=== PATIENT | female | born 1995 | race African-American/Black ===

== ENCOUNTER 2016-10-06 05:36 | Emergency (ER) | payer OTHER ==
[~2016-10-06] VITALS: Ht 180.3 cm; Wt 125.0 kg
[~2016-10-06 05:36] MED LIST: AMOX500C PO; BACT2OIN TOP; CLIN1CAP6 PO; DICL50TA3 PO; GLIP5 PO; GLUCTAB PO; HYDR-2768 PO; PRED20 PO
[2016-10-06 05:40] VITALS: BP 135/72; PULSE 81; RESP 16; TEMP 98.3; O2SAT 96
[2016-10-06] MEDS ORDERED: HYDR12.57 PO (05:54)
[2016-10-06] MEDS ORDERED: METF500T PO (05:54)
--- NOTE | 2016-10-06 06:47 | PD ---
HPI Chief Complaint: Skin Problem Time Seen by Provider: 06:37 Travel History International Travel<30 days: No Contact w/Intl Traveler<30days: No Traveled to known affect area: No History of Present Illness HPI This patient was examined in the presence of a female nurse. 21-year-old female presents for evaluation of irritation of the genital skin. She reports that 2 weeks ago she wore her sisters tightly fitting underwear and since then she has had some irritation in the right labial folds. It is a tender area of skin which is worse with palpation. She has not had any vaginal discharge, dysuria. Patient also notes that she was at work today and she says that one of her coworkers was diagnosed with scabies. The patient has no rash but she is slightly itchy. She has no other complaints. PFSH Past Medical History Cancer: No Cardiovascular Problems: Yes (HTN) Developmental Delay: No Diabetes: Yes Diminished Hearing: No Genitourinary: No Hypertension: Yes Reproductive: No Respiratory: No Immunizations Current: Yes Migraines: Yes ?: Not LMP: 09/09/16 Social History Alcohol Use: No Tobacco Use: No Substance Use: No Allergies-Medications (Allergen,Severity, Reaction): Coded Allergies: Tylenol (Verified Allergy, Mild, THROAT ITCHES/DAVIES, 10/06/16) Reported Meds & Prescriptions Reported Meds & Active Scripts Active Amoxicillin 500 Mg Cap 1,000 Mg PO BID Reported Hydrochlorothiazide 12.5 Mg Cap 12.5 Mg PO DAILY Metformin (Metformin HCl) 500 Mg Tab 250 Mg PO DAILY With meals Review of Systems Except as stated in HPI: all other systems reviewed are Neg Physical Exam Narrative GENERAL: Well-developed well-nourished female in no acute distress SKIN: Warm and dry. CARDIOVASCULAR: Regular rate and rhythm. No murmur appreciated. RESPIRATORY: No accessory muscle use. Clear to auscultation. Breath sounds equal bilaterally. GASTROINTESTINAL: Abdomen soft, non-tender, nondistended. Genital examination reveals a little bit of skin maceration in the right labial folds. Tender to palpation. There is no erythema or drainage. No vesicle, no canker, no pustule formation Data Data Last Documented VS Vital Signs Date Time Temp Pulse Resp B/P Pulse Ox O2 Delivery O2 Flow Rate FiO2 10/06/16 05:40 98.3 81 16 135/72 96 Room Air MDM Medical Decision Making Medical Screen Exam Complete: Yes Emergency Medical Condition: Yes Medical Record Reviewed: Yes Differential Diagnosis Skin maceration, cellulitis, abscess, cyst, folliculitis, irritant contact dermatitis Narrative Course The patient appears to have a little bit of skin maceration in the right labial fold likely secondary to friction. She is a somewhat obese female. Recommended keeping the area clean and dry. Recommended placing a little bit of [id number] antibiotic cream on the region until it heals. There is no evidence of infection. The patient exhibits no examination findings to suggest scabies and I don't recommend prophylactic treatment. She is stable for discharge. Diagnosis Primary Impression: Skin maceration Additional Instructions: Wash the area daily with soap and water and apply antibiotic cream. Keep the area clean and dry. Follow-up with primary care physician as needed. Med/Other Pt SpecificInfo: No Change to Meds Disposition: 01 DISCHARGE HOME Condition: Stable Bridger Espinosa Oct 06, 2016 06:47
== END 2016-10-06 07:18 | disposition home or self-care (01) ==
LOC: NEPB 05:36
DX: L29.3 Anogenital pruritus, unspecified (principal); I10 Essential (primary) hypertension; E11.9 Type 2 diabetes mellitus without complications
CPT/HCPCS: 99283

== ENCOUNTER 2016-12-02 09:19 | Emergency (ER) | payer OTHER ==
[~2016-12-02] VITALS: Ht 180.3 cm; Wt 123.0 kg
[~2016-12-02 09:19] MED LIST changes: -BACT2OIN TOP; -CLIN1CAP6 PO; -DICL50TA3 PO; -GLIP5 PO; -GLUCTAB PO; -HYDR-2768 PO; +HYDR12.57 PO; +METF500T PO; -PRED20 PO
[2016-12-02 09:20] VITALS: BP 162/86; PULSE 74; RESP 20; TEMP 97.8; O2SAT 97
[2016-12-02 10:43] LABS: AUTOMATED NEUTROPHIL # 5.5 TH/MM3 (1.8-7.7); BASOPHIL % 0.3 % (0.0-2.0); EOSINOPHIL # 0.1 TH/MM3 (0-0.4); EOSINOPHIL % 0.8 % (0.0-4.0); HEMATOCRIT 39.5 % (35.0-46.0); HEMO FLAGS DIFF FINAL; LYMPH % 29.1 % (9.0-44.0); LYMPHOCYTE # 2.5 TH/MM3 (1.0-4.8); MEAN CELL VOLUME 83.1 FL (80.0-100.0); MEAN CORPUSCULAR HEMOGLOBIN 28.6 PG (27.0-34.0); MEAN CORPUSCULAR HGB CONC 34.4 % (32.0-36.0); NEUT % 64.8 % (16.0-70.0); PLATELET COUNT 327 TH/MM3 (150-450); RED BLOOD COUNT 4.75 MIL/MM3 (4.00-5.30); RED CELL DISTRIBUTION WIDTH 13.1 % (11.6-17.2); WHITE BLOOD COUNT 8.5 TH/MM3 (4.0-11.0)
[2016-12-02 10:59] VITALS: O2SAT 99
[2016-12-02 11:03] LABS: ANION GAP 9 MEQ/L (5-15); AST (GOT) 7 U/L (15-37); BICARBONATE 25.8 MEQ/L (21.0-32.0); BLOOD UREA NITROGEN 12 MG/DL (7-18); CHLORIDE 102 MEQ/L (98-107); GLOMERULAR FILTRATION RATE 106 ML/MIN (>89); POTASSIUM 3.7 MEQ/L (3.5-5.1); SODIUM (NA) 137 MEQ/L (136-145)
[2016-12-02 11:06] LABS: ALKALINE PHOSPHATASE 69 U/L (45-117); ALT (GPT) 13 U/L (10-53); TOTAL BILIRUBIN ADULT 0.5 MG/DL (0.2-1.0)
--- NOTE | 2016-12-02 11:13 | PD ---
HPI Chief Complaint: Abdominal Pain Time Seen by Provider: 11:13 Travel History International Travel<30 days: No Contact w/Intl Traveler<30days: No Traveled to known affect area: No History of Present Illness HPI 21-year-old Afro-[place] female presents emergency Department with 2 day history of sudden onset nausea, vomiting, and abdominal pain. Patient also states she recently started her menstrual cycle which typically gives her abdominal cramps. Patient feels her illness is probably due to a pizza that she ate when she woke up with copious amounts of nausea and vomiting 2 nights ago. She continues to have nausea but has not vomited since last evening. She denies fever, chills, or chance of . Patient has not eaten in the last 24 hours. Patient denies urinary symptoms. She denies vaginal symptoms. She is allergic to Tylenol. PFSH Past Medical History Cancer: No Cardiovascular Problems: Yes (HTN) Developmental Delay: No Diabetes: Yes Patient Takes Glucophage: Yes Diminished Hearing: No Genitourinary: No Hypertension: Yes Reproductive: No Respiratory: No Immunizations Current: Yes Migraines: Yes Tetanus Vaccination: < 5 Years ?: Not LMP: 12/02/16 Past Surgical History Surgical History: No Previous Surgery Other Surgery: No Social History Alcohol Use: Yes (OCCASIONALLY WINE) Tobacco Use: No Substance Use: No Allergies-Medications (Allergen,Severity, Reaction): Coded Allergies: Tylenol (Verified Allergy, Mild, THROAT ITCHES/DAVIES, 12/02/16) Reported Meds & Prescriptions Reported Meds & Active Scripts Active Metformin (Metformin HCl) 500 Mg Tab 500 Mg PO TIDPC With meals Zofran (Ondansetron HCl) 4 Mg Tab 4 Mg PO Q6HR PRN Ibuprofen 600 Mg Tab 600 Mg PO Q6H PRN Keflex (Cephalexin) 500 Mg Cap 500 Mg PO Q8H Reported Hydrochlorothiazide 12.5 Mg Cap 12.5 Mg PO DAILY Metformin (Metformin HCl) 500 Mg Tab 250 Mg PO DAILY With meals Review of Systems Except as stated in HPI: all other systems reviewed are Neg General / Constitutional: No: Fever, Chills Eyes: No: Visual changes HENT: No: Headaches Cardiovascular: No: Chest Pain or Discomfort Respiratory: No: Shortness of Breath Gastrointestinal: Positive: Nausea, Vomiting, Abdominal Pain (crampy lower abdominal), Loss of Appetite, No: Diarrhea (yesterday.) Genitourinary: No: Urgency, Frequency, Dysuria, Nocturia Musculoskeletal: No: Pain Skin: No Rash Neurologic: No: Weakness Psychiatric: No: Depression Endocrine: No: Polydipsia Hematologic/Lymphatic: No: Easy Bruising Physical Exam Narrative GENERAL: Patient is sitting up in bed in no acute distress. SKIN: Warm and dry. Normal color. Normal turgor. HEAD: Atraumatic. Normocephalic. EYES: Pupils equal and round. No scleral icterus. No injection or drainage. ENT: No nasal bleeding or discharge. Mucous membranes pink and moist. Pharynx is normal. Airway is patent. NECK: Trachea midline. Neck is supple and nontender. CARDIOVASCULAR: Regular rate and rhythm. No murmurs gallops or rubs. RESPIRATORY: No accessory muscle use. Clear to auscultation. Breath sounds equal bilaterally. GASTROINTESTINAL: Abdomen soft, mild generalized lower abdominal discomfort more on the right than the left, Nondistended. Hepatic and splenic margins not palpable. MUSCULOSKELETAL: Extremities without clubbing, cyanosis, or edema. No obvious deformities. NEUROLOGICAL: Awake and alert. No obvious cranial nerve deficits. Motor grossly within normal limits. Five out of 5 muscle strength in the arms and legs. Normal speech. PSYCHIATRIC: Appropriate mood and affect; insight and judgment normal. Data Data Last Documented VS Vital Signs Date Time Temp Pulse Resp B/P Pulse Ox O2 Delivery O2 Flow Rate FiO2 12/02/16 10:59 99 Room Air 12/02/16 10:59 20 12/02/16 09:20 97.8 74 162/86 Orders Complete Blood Count With Diff (12/02/16 10:04) Comprehensive Metabolic Panel (12/02/16 10:04) Urinalysis - C+S If Indicated (12/02/16 10:04) Ed Urine Pregnancytest Poc (12/02/16 10:04) Iv Access Insert/Monitor (12/02/16 10:04) Oxygen Administration (12/02/16 10:04) Oximetry (12/02/16 10:04) Lipase (12/02/16 10:04) Ecg Monitoring (12/02/16 11:18) NPO (12/02/16 11:18) Ondansetron Inj (Zofran Inj) (12/02/16 11:30) Sodium Chlor 0.9% 1000 Ml Inj (Ns 1000 M (12/02/16 11:18) Famotidine Inj (Pepcid Inj) (12/02/16 11:30) Ketorolac Inj (Toradol Inj) (12/02/16 11:30) Urine Culture (12/02/16 10:16) Labs Laboratory Tests Test 12/02/16 10:16 White Blood Count 8.5 TH/MM3 Red Blood Count 4.75 MIL/MM3 Hemoglobin 13.6 GM/DL Hematocrit 39.5 % Mean Corpuscular Volume 83.1 FL Mean Corpuscular Hemoglobin 28.6 PG Mean Corpuscular Hemoglobin 34.4 % Concent Red Cell Distribution Width 13.1 % Platelet Count 327 TH/MM3 Mean Platelet Volume 7.1 FL Neutrophils (%) (Auto) 64.8 % Lymphocytes (%) (Auto) 29.1 % Monocytes (%) (Auto) 5.0 % Eosinophils (%) (Auto) 0.8 % Basophils (%) (Auto) 0.3 % Neutrophils # (Auto) 5.5 TH/MM3 Lymphocytes # (Auto) 2.5 TH/MM3 Monocytes # (Auto) 0.4 TH/MM3 Eosinophils # (Auto) 0.1 TH/MM3 Basophils # (Auto) 0.0 TH/MM3 CBC Comment DIFF FINAL Differential Comment Urine Color RED Urine Turbidity HAZY Urine pH 6.0 Urine Specific [place] 1.037 Urine Protein 100 mg/dL Urine Glucose (UA) 1000 mg/dL Urine Ketones NEG mg/dL Urine Occult Blood MOD Urine Nitrite NEG Urine Bilirubin NEG Urine Urobilinogen 2.0 MG/DL Urine Leukocyte Esterase NEG Urine RBC /hpf Urine WBC 10 /hpf Urine Squamous Epithelial 12 /hpf Cells Urine Bacteria FEW /hpf Microscopic Urinalysis Comment CULTURE INDICATED Sodium Level 137 MEQ/L Potassium Level 3.7 MEQ/L Chloride Level 102 MEQ/L Carbon Dioxide Level 25.8 MEQ/L Anion Gap 9 MEQ/L Blood Urea Nitrogen 12 MG/DL Creatinine 0.82 MG/DL Estimat Glomerular Filtration 106 ML/MIN Rate Random Glucose 278 MG/DL Calcium Level 8.6 MG/DL Total Bilirubin 0.5 MG/DL Aspartate Amino Transf 7 U/L (AST/SGOT) Alanine Aminotransferase 13 U/L (ALT/SGPT) Alkaline Phosphatase 69 U/L Total Protein 7.6 GM/DL Albumin 3.5 GM/DL Lipase 103 U/L [facility] Medical Decision Making Medical Screen Exam Complete: Yes Emergency Medical Condition: Yes Differential Diagnosis Nausea vomiting. Abdominal pain. Menstrual cramping. Food poisoning. Narrative Course Patient is medically stable at time of exam. CBC, CMP, and urinalysis are ordered prior to arrival in the medical pod. Urine is pending. IV access is obtained patient is given 20 mg Pepcid IV, 4 mg Zofran IV, and 30 mg Toradol IV. Patient is found to have a urinary tract infection. CBC and CMP are unremarkable except for an elevated sugar of 258. Patient will be discharged home on Keflex 500 mg 3 times a day 7 days. Patient is given a prescription for Zofran 4 mg every 6 hours when necessary # 12. Patient is given a refill of her metformin 500 mg 3 times a day #90. Patient is given ibuprofen 600 mg 4 times a day when necessary menstrual cramping #40. Patient is to follow with her primary care physician or return to emergency department as necessary. Diagnosis Primary Impression: Urinary tract infection Qualified Code: N30.01 - Acute cystitis with hematuria Additional Impressions: Nausea and vomiting Qualified Code: R11.2 - Non-intractable vomiting with nausea, unspecified vomiting type Type 2 diabetes mellitus Qualified Code: E11.9 - Type 2 diabetes mellitus without complication, without long-term current use of insulin Menstrual cramps Referrals: Primary Care Physician Patient Instructions: Acute Nausea and Vomiting (ED), Dysuria (ED), General Instructions Additional Instructions: Patient will be discharged home on Keflex 500 mg 3 times a day 7 days. Patient is given a prescription for Zofran 4 mg every 6 hours when necessary # 12. Patient is given a refill of her metformin 500 mg 3 times a day #90. Patient is given ibuprofen 600 mg 4 times a day when necessary menstrual cramping #40. Patient is to follow with her primary care physician or return to emergency department as necessary. Scripts Metformin 500 Mg [id number] Mg PO TIDPC #90 TAB Ref 0 With meals Prov:Donavon Saleh MD 12/02/16 Ondansetron (Zofran)4 Mg Tab4 Mg PO Q6HR PRN (NAUSEA OR VOMITING) #12 TAB Prov:Donavon Saleh MD 12/02/16 Ibuprofen 600 Mg [id number] Mg PO Q6H PRN (Pain/Inflammation) #40 TAB Prov:Donavon Saleh MD 12/02/16 Cephalexin (Keflex)500 Mg [id number] Mg PO Q8H #21 CAP Prov:Donavon Saleh MD 12/02/16 Disposition: 01 DISCHARGE HOME Condition: Stable Fredi Strauss Dec 02, 2016 11:13
[2016-12-02] MEDS ORDERED: SODIUM CHLOR 0.9% 1000 ML INJ 1,000 ML IV SCH (11:18)
[2016-12-02 11:25] VITALS: BP 143/76; PULSE 80; RESP 20; O2SAT 97
[2016-12-02 11:25] LABS: BACTERIA, URINE FEW /hpf; BLOOD, URINE MOD (NEG); COMMENT (UR) CULTURE INDICATED; CULTURE IF INDICATED CULTURE INDICATED; GLUCOSE,URINE 1000 mg/dL (NEG); KETONE, URINE NEG (NEG); NITRITE,URINE NEG (NEG); SQUAMOUS EPITHELIAL CELL URINE 12 /hpf (0-5)
[2016-12-02 11:26] LABS: URINE COLOR RED (YELLW/STRAW)
[2016-12-02] MEDS ORDERED: ONDANSETRON HCL 4 MG/2 ML VIAL IVP ONE (11:30)
[2016-12-02] MEDS ORDERED: FAMOTIDINE 20 MG/2 ML VIAL IV PUSH ONE (11:30)
[2016-12-02] MEDS ORDERED: KETOROLAC TROMETHAMINE 30 MG/ML (IVP) VIAL IVP ONE (11:30)
[2016-12-02] MEDS ORDERED: IBUP-232 PO (11:40)
[2016-12-02] MEDS ORDERED: ZOFR4TAB PO (11:40)
[2016-12-02] MEDS ORDERED: CEPH-460 PO (11:40)
[2016-12-02] MEDS ORDERED: METF500T PO (11:40)
== END 2016-12-02 12:31 | disposition home or self-care (01) ==
LOC: NEPE 09:19
DX: N30.01 Acute cystitis with hematuria (principal); B96.89 Other specified bacterial agents as the cause of diseases classified elsewhere; R11.2 Nausea with vomiting, unspecified; E11.9 Type 2 diabetes mellitus without complications; N94.6 Dysmenorrhea, unspecified; Z79.84 Long term (current) use of oral hypoglycemic drugs
CPT/HCPCS: 80053; 81001; 83690; 84703; 85025; 87086; 99284

== ENCOUNTER 2017-01-04 17:57 | Emergency (ER) | payer OTHER ==
[~2017-01-04 17:57] MED LIST changes: -AMOX500C PO; +CEPH-460 PO; +IBUP-232 PO; +ZOFR4TAB PO
[2017-01-04 17:59] VITALS: BP 158/79; PULSE 78; RESP 20; TEMP 98.8; O2SAT 99
[2017-01-04] MEDS ORDERED: IBUPROFEN 800 MG TAB PO ONE (18:45)
--- NOTE | 2017-01-04 18:48 | PD ---
HPI Chief Complaint: Injury Time Seen by Provider: 18:43 Travel History International Travel<30 days: No Contact w/Intl Traveler<30days: No Traveled to known affect area: No History of Present Illness HPI 21-year-old female presents to the emergency Department with complaint of left middle finger pain after slamming it in a door. She reports decreased range of motion at the PIP joint. Denies paresthesias, loss of sensation. Has not taken any medication or drainage from his to alleviate her symptoms. Allergies to Tylenol. No other modifying factors or associated signs and symptoms. PFSH Past Medical History Cancer: No Cardiovascular Problems: Yes (HTN) Developmental Delay: No Diabetes: Yes Patient Takes Glucophage: Yes Diminished Hearing: No Genitourinary: No Hypertension: Yes Reproductive: No Respiratory: No Immunizations Current: Yes Migraines: Yes Tetanus Vaccination: < 5 Years ?: Not Past Surgical History Other Surgery: No Social History Alcohol Use: Yes (OCCASIONALLY WINE) Tobacco Use: No Substance Use: No Allergies-Medications (Allergen,Severity, Reaction): Coded Allergies: Tylenol (Verified Allergy, Mild, THROAT ITCHES/DAVIES, 01/04/17) Reported Meds & Prescriptions Reported Meds & Active Scripts Active Metformin (Metformin HCl) 500 Mg Tab 500 Mg PO TIDPC With meals Reported Hydrochlorothiazide 12.5 Mg Cap 12.5 Mg PO DAILY Review of Systems Except as stated in HPI: all other systems reviewed are Neg Physical Exam Narrative GENERAL: Well-nourished, well-developed female patient, in no acute distress SKIN: Warm and dry. HEAD: Atraumatic. Normocephalic. EYES: Pupils equal and round. No scleral icterus. No injection or drainage. ENT: Mucosa pink and moist. Airway patent. NECK: Trachea midline. CARDIOVASCULAR: Regular rate. RESPIRATORY: No accessory muscle use. GASTROINTESTINAL: Obese. MUSCULOSKELETAL: Distal aspect of left third digit with mild edema; decreased range of motion at the PIP joint; no obvious deformity; sensory intact; less than 3 second cap refill; no open wound noted. No obvious deformities. No clubbing. No cyanosis. No edema. NEUROLOGICAL: Awake and alert. Oriented 3. No obvious cranial nerve deficits. Motor grossly within normal limits. Normal speech. PSYCHIATRIC: Appropriate mood and affect; insight and judgment normal. Data Data Last Documented VS Vital Signs Date Time Temp Pulse Resp B/P Pulse Ox O2 Delivery O2 Flow Rate FiO2 01/04/17 17:59 98.8 78 20 158/79 99 Room Air Orders Finger ([id number]) (01/04/17 ) Ibuprofen (Motrin) (01/04/17 18:45) Splint Or Brace Apply/Monitor (01/04/17 19:56) Finger Splint (01/04/17 ) MDM Medical Decision Making Medical Screen Exam Complete: Yes Emergency Medical Condition: Yes Medical Record Reviewed: Yes Differential Diagnosis Finger fracture, finger dislocation, finger contusion Narrative Course 21-year-old female with left third digit injury. Ibuprofen administered in the ER. Left third digit finger x-ray ordered. 1900: Bridger Espinosa PA-C will assume patient care at this time. Report given. See his note for final disposition. Kia ChapaP Jan 04, 2017 18:48
--- NOTE | 2017-01-04 19:56 | PD ---
Physical Exam Time Seen by Provider: 19:50 Data Data Last Documented VS Vital Signs Date Time Temp Pulse Resp B/P Pulse Ox O2 Delivery O2 Flow Rate FiO2 01/04/17 17:59 98.8 78 20 158/79 99 Room Air Orders Finger ([id number]) (01/04/17 ) Ibuprofen (Motrin) (01/04/17 18:45) Splint Or Brace Apply/Monitor (01/04/17 19:56) MDM Medical Record Reviewed: Yes Supervised Visit with JOSE MARTIN: No Narrative Course I assumed care of this patient pending x-ray imaging. Please see previous providers notes. She has pain to the distal aspect of left third finger after slamming a door in her finger. She has mild bruising to the dorsal aspect of the distal left third finger. No range of motion limitation or sensation change. X-ray imaging is negative for fracture. She appears to have a contusion. She is stable for discharge. She is requesting a finger splint were night because she typically sleeps in the bed with kids and she is concerned that one of them may hit her finger. She is stable for discharge. Diagnosis Primary Impression: Contusion of finger of left hand Qualified Code: S60.032A - Contusion of left middle finger without damage to nail, initial encounter Additional Instruction: Ice pack several times a day 15 minutes at a time over the next few days. Decrease use of left third finger. Ibuprofen for pain, take with meals. Can also take [id number] Tylenol. Med/Other Pt SpecificInfo: Orthopedic Instructions Disposition: 01 DISCHARGE HOME Condition: Stable Bridger Espinosa Jan 04, 2017 19:56
--- NOTE | 2017-01-04 20:05 | RADRPT ---
EXAM DATE/TIME: 01/04/2017 19:15 [facility] COMPARISON: No previous studies available for comparison. INDICATIONS : Left hand third digit pain. patient got finger caught in a door today. Pain and swelling near the PIP . MEDICAL HISTORY : None. SURGICAL HISTORY : None. ENCOUNTER: Initial ACUITY: 1 day PAIN SCORE: 10/10 LOCATION: Left hand, third digit. FINDINGS: Examination of the third digit of the left hand demonstrates no evidence of fracture or dislocation. No radiopaque foreign bodies are seen. The soft tissues are intact. CONCLUSION: Normal examination for a patient of this age. Selvin Castellanos MD on January 04, 2017 at 20:03 Board Certified Radiologist. This report was verified electronically.
== END 2017-01-04 20:25 | disposition home or self-care (01) ==
LOC: NEPK 17:57
DX: S60.032A Contusion of left middle finger without damage to nail, initial encounter (principal); W23.0XXA Caught, crushed, jammed, or pinched between moving objects, initial encounter
CPT/HCPCS: 29130; 73140

== ENCOUNTER 2017-02-10 22:51 | Emergency (ER) | payer OTHER ==
[~2017-02-10] VITALS: Ht 180.3 cm; Wt 120.0 kg
[~2017-02-10 22:51] MED LIST changes: -CEPH-460 PO; -IBUP-232 PO; -ZOFR4TAB PO
[2017-02-10 22:54] VITALS: BP 141/83; PULSE 90; RESP 16; TEMP 98.6; O2SAT 99
[2017-02-10] MEDS ORDERED: MOME17I EACH NARE (23:58)
[2017-02-10] MEDS ORDERED: DICL75TA PO (23:58)
[2017-02-10] MEDS ORDERED: FEXO1TAB97 PO (23:58)
[2017-02-10] MEDS ORDERED: CYCL1TAB29 PO (23:58)
[2017-02-11] MEDS ORDERED: CYCLOBENZAPRINE HCL 10 MG TAB PO ONE
[2017-02-11] MEDS ORDERED: IBUPROFEN 800 MG TAB PO ONE
[2017-02-11] MEDS ORDERED: diphenhydrAMINE HCL 50 MG CAP PO ONE
--- NOTE | 2017-02-11 00:05 | PD ---
HPI Chief Complaint: ENT Complaint Time Seen by Provider: 00:00 Travel History International Travel<30 days: No Contact w/Intl Traveler<30days: No Traveled to known affect area: No History of Present Illness HPI 21-year-old black female presents to emergency Department with complaints of right sided neck pain. She states that she has slept on the couch 4 days ago at the onset of her neck pain. She states the pain radiates up her neck into her head and down into her shoulder. Worse with movement. She also states that she had some cold symptoms this past week as well. This has consisted of runny nose, congestion, sinus pressure, sore throat and cough. She denies any fever chills. No significant ear pain, nausea, vomiting, diarrhea or abdominal pain. No urinary symptoms. PFSH Past Medical History Narrative Medical Diabetes, hypertension Cancer: No Cardiovascular Problems: Yes (HTN) Developmental Delay: No Diabetes: Yes Diminished Hearing: No Genitourinary: No Hypertension: Yes Reproductive: No Respiratory: No Immunizations Current: Yes Migraines: Yes Tetanus Vaccination: < 5 Years ?: Not LMP: Past Surgical History Surgical History: No Previous Surgery Other Surgery: No Social History Alcohol Use: Yes (OCCASIONALLY WINE) Tobacco Use: No Substance Use: No Allergies-Medications (Allergen,Severity, Reaction): Coded Allergies: Tylenol (Verified Allergy, Mild, THROAT ITCHES/DAVIES, 02/10/17) Reported Meds & Prescriptions Reported Meds & Active Scripts Active Diclofenac Sodium DR (Diclofenac Sodium) 75 Mg Tabdr 75 Mg PO BID Flexeril (Cyclobenzaprine HCl) 10 Mg Tab 10 Mg PO TID Bere-D 24 Hour Allergy (Fexofenadine-Pseudoephedrine ER 24 HR) 180-240 [place] 1 Tab PO DAILY Nasonex Nasal [place] (Mometasone Furoate) 50 Mcg/Act Naspr 2 [place] EACH NARE DAILY Metformin (Metformin HCl) 500 Mg Tab 500 Mg PO TIDPC With meals Reported Hydrochlorothiazide 12.5 Mg Cap 12.5 Mg PO DAILY Review of Systems Except as stated in HPI: all other systems reviewed are Neg Physical Exam Narrative GENERAL: Well-developed, well-nourished in no acute distress. Nontoxic appearing. HEAD: Normocephalic, atraumatic. No pain on percussion of the sinuses. EYES: Pupils equal round and reactive. Extraocular motions intact. No scleral icterus. No injection or drainage. ENT: TMs clear without erythema. The external auditory canals clear. Nose: clear discharge with edema turbinates . Posterior pharynx is mildly erythematous and moist. No tonsillar edema or exudate. Uvula midline. Airway patent. NECK: Trachea midline.Supple, tenderness to the right paracervical musculature. , moves head freely. No central bony tenderness. Mild trapezius spasm. CARDIOVASCULAR: Regular rate and rhythm without murmurs, gallops, or rubs. RESPIRATORY: Clear to auscultation. Breath sounds equal bilaterally. No wheezes , rales, or rhonchi. GASTROINTESTINAL: Abdomen soft, non-tender, nondistended. No hepato-splenomegaly , or palpable masses. No guarding. EXTREMITIES: No clubbing, cyanosis, or edema. No joint tenderness, effusion, or edema noted. BACK: Nontender without deformity or crepitance. No flank tenderness. Data Data Last Documented VS Vital Signs Date Time Temp Pulse Resp B/P Pulse Ox O2 Delivery O2 Flow Rate FiO2 02/10/17 22:54 98.6 90 16 141/83 99 Orders Diphenhydramine (Benadryl) (02/11/17 00:00) Cyclobenzaprine (Flexeril) (02/11/17 00:00) Ibuprofen (Motrin) (02/11/17 00:00) [facility] Medical Decision Making Medical Screen Exam Complete: Yes Emergency Medical Condition: Yes Medical Record Reviewed: Yes Differential Diagnosis MDM: High Differential diagnoses: URI, sinusitis, otitis media, sprain, strain, HNP, nerve or vascular injury Narrative Course Patient's given Motrin 800, Flexeril 10 mg, and Benadryl 50 mg by mouth. This is allergic rhinitis, neck pain with spasm Diagnosis Primary Impression: Allergic rhinitis Qualified Code: J30.9 - Allergic rhinitis, unspecified allergic rhinitis trigger, unspecified rhinitis seasonality Additional Impression: neck pain with spasm Patient Instructions: General Instructions Additional Instructions: Rest. Increase fluids. Medications as directed. Afrin nasal spray for the next 3-4 days only. Heating pad. Follow-up with your doctor in the next 3-5 days. Return to the ER for emergencies. Med/Other Pt SpecificInfo: Prescription(s) given Scripts Diclofenac Sodium DR 75 Mg Tabdr75 Mg PO BID #20 TAB Prov:Donavon Saleh MD 02/10/17 Cyclobenzaprine (Flexeril)10 Mg Tab10 Mg PO TID #21 TAB Prov:Donavon Saleh MD 02/10/17 Fexofenadine-Pseudoephedrine ER 24 HR (Bere-D 24 Hour Allergy)180-240 Taber1 Tab PO DAILY #15 TAB Prov:Donavon Saleh MD 02/10/17 Mometasone Nasal [place] (Nasonex Nasal [place])50 Mcg/Act Naspr2 [place] EACH NARE DAILY #1 BOTTLE Prov:Donavon Saleh MD 02/10/17 Disposition: 01 DISCHARGE HOME Condition: Eleuterio Douglas February 11, 2017 00:05
== END 2017-02-11 02:19 | disposition home or self-care (01) ==
LOC: NEPK 22:51
DX: J30.9 Allergic rhinitis, unspecified (principal); M54.2 Cervicalgia; I10 Essential (primary) hypertension; E11.9 Type 2 diabetes mellitus without complications; R25.2 Cramp and spasm
CPT/HCPCS: 99282; Q0163

== ENCOUNTER 2017-03-27 00:15 | Emergency (ER) | payer OTHER ==
[~2017-03-27] VITALS: Ht 180.3 cm; Wt 130.0 kg
[~2017-03-27 00:15] MED LIST changes: +CYCL1TAB29 PO; +DICL75TA PO; +FEXO1TAB97 PO; +MOME17I EACH NARE
[2017-03-27 00:18] VITALS: BP 175/107; PULSE 99; RESP 18; TEMP 99.3; O2SAT 99
[2017-03-27] MEDS ORDERED: METF500T PO (00:30)
[2017-03-27] MEDS ORDERED: SODIUM CHLOR 0.9% 1000 ML INJ 1,000 ML IV SCH (00:46)
[2017-03-27] MEDS ORDERED: SODIUM CHLORIDE 0.9% FLUSH 10 ML FLUSH IV FLUSH PRN (01:00)
[2017-03-27] MEDS ORDERED: diphenhydrAMINE HCL 50 MG/ML VIAL IVP ONE (01:00)
[2017-03-27] MEDS ORDERED: DEXAMETHASONE SOD PHOS 20 MG/5 ML VIAL IV PUSH ONE (01:00)
[2017-03-27] MEDS ORDERED: FAMOTIDINE 20 MG/2 ML VIAL IV PUSH ONE (01:00)
[2017-03-27 01:04] VITALS: RESP 18; O2SAT 100
[2017-03-27 01:05] VITALS: BP 161/98; PULSE 97; RESP 18; O2SAT 100
--- NOTE | 2017-03-27 01:11 | PD ---
HPI Chief Complaint: Allergic/Adverse Reaction Time Seen by Provider: 00:45 Travel History International Travel<30 days: No Contact w/Intl Traveler<30days: No Traveled to known affect area: No History of Present Illness HPI Patient is a 22 year old female who presents to ER with complaints of allergic reaction. Patient reports that around 10pm tonight, she tried drinking [place] [employer] Diomedes Wine for the first time. Reports that she put a little wine in her mouth and felt funny. Reports that she felt a tingling sensation to the back of her throat and reports that she broke out in a rash all over her body. Patient denies sensation of throat closing in on her. Reports that she has not had any allergies to Diomedes's in the past, no allergies to food. Patient reports that she only has an allergy to Tylenol. Patient with no other complaints at this time. PFSH Past Medical History Cancer: No Cardiovascular Problems: Yes (HTN) Developmental Delay: No Diabetes: Yes Patient Takes Glucophage: Yes Diminished Hearing: No Gastrointestinal Disorders: No Genitourinary: No Hypertension: Yes Implanted Vascular Access Dvce: No Reproductive: No Respiratory: No Immunizations Current: Yes Migraines: Yes ?: Not LMP: 03/09/17 Past Surgical History Surgical History: No Previous Surgery Other Surgery: No Social History Alcohol Use: Yes (OCCASIONALLY WINE) Tobacco Use: No Substance Use: No Allergies-Medications (Allergen,Severity, Reaction): Coded Allergies: Tylenol (Verified Allergy, Mild, THROAT ITCHES/DAVIES, 03/27/17) Reported Meds & Prescriptions Reported Meds & Active Scripts Active Epipen 2-Mynor Inj (Epinephrine) 0.3 Mg/0.3 Ml Pfpen 0.3 Mg IM ONCE PRN Prednisone 20 Mg Tab 20 Mg PO BID 5 Days Pepcid (Famotidine) 20 Mg Tab 20 Mg PO BID Bere-D 24 Hour Allergy (Fexofenadine-Pseudoephedrine ER 24 HR) 180-240 Eloy 1 Tab PO DAILY Reported Metformin (Metformin HCl) 500 Mg Tab 500 Mg PO DAILY With a meal Hydrochlorothiazide 12.5 Mg Cap 50 Mg PO DAILY Review of Systems General / Constitutional: No: Fever Eyes: No: Visual changes HENT: No: Headaches Cardiovascular: No: Chest Pain or Discomfort Respiratory: No: Shortness of Breath Gastrointestinal: No: Abdominal Pain Genitourinary: No: Dysuria Musculoskeletal: No: Pain Skin: Positive Rash, Positive Itching Neurologic: No: Weakness Psychiatric: No: Depression Endocrine: No: Polydipsia Hematologic/Lymphatic: No: Easy Bruising Physical Exam Narrative GENERAL: nad, nontoxic SKIN: Focused skin assessment warm/dry. HEAD: Atraumatic. Normocephalic. EYES: Pupils equal and round. No scleral icterus. No injection or drainage. ENT: No nasal bleeding or discharge. Mucous membranes pink and moist. Airway is open and patent, uvula midline, bilateral pharynx with no edema or erythema, patient is tolerating her own airway, no drooling on exam. NECK: Trachea midline. No JVD. CARDIOVASCULAR: Regular rate and rhythm. No murmur appreciated. RESPIRATORY: No accessory muscle use. Clear to auscultation. Breath sounds equal bilaterally. GASTROINTESTINAL: Abdomen soft, non-tender, nondistended. Hepatic and splenic margins not palpable. MUSCULOSKELETAL: No obvious deformities. No clubbing. No cyanosis. No edema. NEUROLOGICAL: Awake and alert. No obvious cranial nerve deficits. Motor grossly within normal limits. Normal speech. PSYCHIATRIC: Patient extremely anxious on exam. Data Data Last Documented VS Vital Signs Date Time Temp Pulse Resp B/P Pulse Ox O2 Delivery O2 Flow Rate FiO2 03/27/17 01:05 97 18 161/98 100 Room Air 03/27/17 00:18 99.3 Orders Ecg Monitoring (03/27/17 00:46) Iv Access Insert/Monitor (03/27/17 00:46) Oximetry (03/27/17 00:46) Diphenhydramine Inj (Benadryl Inj) (03/27/17 01:00) Famotidine Inj (Pepcid Inj) (03/27/17 01:00) Sodium Chlor 0.9% 1000 Ml Inj (Ns 1000 M (03/27/17 00:46) Sodium Chloride 0.9% Flush (Ns Flush) (03/27/17 01:00) Dexamethasone Inj (Decadron Inj) (03/27/17 01:00) MDM Medical Decision Making Medical Screen Exam Complete: Yes Emergency Medical Condition: Yes Interpretation(s) Vital Signs Date Time Temp Pulse Resp B/P Pulse Ox O2 Delivery O2 Flow Rate FiO2 03/27/17 01:05 97 18 161/98 100 Room Air 03/27/17 01:04 18 100 Room Air 03/27/17 00:18 99.3 99 18 175/107 99 Room Air Differential Diagnosis Allergic reaction Narrative Course Patient is a 22-year-old female who presents to emergency room with complaints of allergic reaction to raspberry. Patient reports that she drank some wine and felt a tingling sensation to her throat and was concerned for allergic reaction. Patient at this time has open airway. She is crying and upset. There is no obvious rash - will treat for allergic reaction with dexamethasone, pepcid, and benadryl. Will monitor patient on cardiac/vascular sonographer and continuous pulse oximeter patient re-evaluated, patient feeling much better at this time. airway is open and patent, uvula with no swelling, posterior pharynx open and patent, patient with decreased hives Diagnosis Primary Impression: Allergic reaction Qualified Code: T78.40XA - Allergic reaction, initial encounter Patient Instructions: General Instructions Additional Instructions: Please follow-up with your primary care doctor Please follow up with twx operator as soon as possible Please do not eat any raspberry products Return to ER as needed Please go to closest ER if you administer EPI pen to yourself Med/Other Pt SpecificInfo: Prescription(s) given Scripts Epinephrine Inj (Epipen 2-Mynor Inj)0.3 Mg/0.3 Ml Pfpen0.3 Mg IM ONCE PRN ( ALLERGIC REACTION) #1 PACK Ref 0 Prov:Hailey Aguilar DO 03/27/17 Prednisone 20 Mg Tab20 Mg PO BID 5 Days Ref 0 Prov:Hailey Aguilar DO 03/27/17 Famotidine (Pepcid)20 Mg Tab20 Mg PO BID #7 TAB Ref 0 Prov:Hailey Aguilar DO 03/27/17 Disposition: DISCHARGE HOME Condition: Stable Hailey Aguilar DO Mar 27, 2017 01:11
[2017-03-27] MEDS ORDERED: FAMO1TAB37 PO (02:12)
[2017-03-27] MEDS ORDERED: PRED20 PO (02:12)
[2017-03-27] MEDS ORDERED: EPIP0.3I IM (02:12)
== END 2017-03-27 03:13 | disposition home or self-care (01) ==
LOC: NEPC 00:15
DX: T78.40XA Allergy, unspecified, initial encounter (principal); I10 Essential (primary) hypertension; E11.9 Type 2 diabetes mellitus without complications; Z79.899 Other long term (current) drug therapy
CPT/HCPCS: 96374; 96375; 99284; J1100; J1200; J7030

== ENCOUNTER 2017-03-31 23:03 | Emergency (ER) | payer OTHER ==
[~2017-03-31] VITALS: Ht 180.3 cm; Wt 130.0 kg
[~2017-03-31 23:03] MED LIST changes: -CYCL1TAB29 PO; -DICL75TA PO; +EPIP0.3I IM; +FAMO1TAB37 PO; -MOME17I EACH NARE; +PRED20 PO
[2017-03-31 23:06] VITALS: BP 139/88; PULSE 76; RESP 16; TEMP 98.6; O2SAT 100
[2017-03-31] MEDS ORDERED: ONDANSETRON HCL 4 MG/2 ML VIAL IVP ONE (23:30)
[2017-03-31] MEDS ORDERED: SODIUM CHLORIDE 0.9% FLUSH 10 ML FLUSH IVF PRN (23:30)
[2017-03-31] MEDS ORDERED: SODIUM CHLOR 0.9% 1000 ML INJ 1,000 ML IV ONE (23:30)
--- NOTE | 2017-04-01 00:09 | PD ---
HPI . "Stomach pains" Chief Complaint: Abdominal Pain Time Seen by Provider: 23:18 Travel History International Travel<30 days: No Contact w/Intl Traveler<30days: No Traveled to known affect area: No History of Present Illness HPI 22 year old female with a history of diabetes and hypertension presents with abdominal pain. Onset was last night. Patient reports the pain is in the middle of her abdomen, no radiation. Pain comes and goes and episodes last about 30 minutes. She has had 5 episodes today. She describes the pain as a "squeezing and releasing" pain. Pain is alleviated with sitting. Aggravated by movement or bending over. She is also having associated nausea and vomiting. She had 2 episodes of emesis last night, none today. Also reports diarrhea. She has had about 7 episodes of diarrhea today of varying volumes. Patient reports she has had diarrhea before on metformin but the abdominal pain and vomiting are new. Reports having some blood when she wipes after bowel movements. She recently started metformin on Friday afternoon. Denies being sexually active and does not take an oral contraceptive. Last menstrual period was approximately March 18. Denies any fever, chills or dysuria. Reports decreased appetite. PFSH Past Medical History Cancer: No Cardiovascular Problems: Yes (HTN) Developmental Delay: No Diabetes: Yes Patient Takes Glucophage: Yes (AM) Diminished Hearing: No Gastrointestinal Disorders: No Genitourinary: No Hypertension: Yes Implanted Vascular Access Dvce: No Reproductive: No Respiratory: No Immunizations Current: Yes Migraines: Yes ?: Not LMP: 03/18/17 : 0 Past Surgical History Surgical History: No Previous Surgery Other Surgery: No Social History Alcohol Use: Yes (OCCASIONALLY WINE) Tobacco Use: No Substance Use: No Allergies-Medications (Allergen,Severity, Reaction): Coded Allergies: Tylenol (Verified Allergy, Mild, THROAT ITCHES/DAVIES, 03/31/17) Reported Meds & Prescriptions Reported Meds & Active Scripts Active Epipen 2-Mynor Inj (Epinephrine) 0.3 Mg/0.3 Ml Pfpen 0.3 Mg IM ONCE PRN Prednisone 20 Mg Tab 20 Mg PO BID 5 Days Pepcid (Famotidine) 20 Mg Tab 20 Mg PO BID Bere-D 24 Hour Allergy (Fexofenadine-Pseudoephedrine ER 24 HR) 180-240 Eloy 1 Tab PO DAILY Reported Metformin (Metformin HCl) 500 Mg Tab 500 Mg PO DAILY With a meal Hydrochlorothiazide 12.5 Mg Cap 50 Mg PO DAILY Review of Systems Except as stated in HPI: all other systems reviewed are Neg General / Constitutional: No: Fever, Chills Gastrointestinal: Positive: Nausea, Vomiting, Diarrhea, Abdominal Pain, Loss of Appetite Genitourinary: No: Dysuria Physical Exam Narrative GENERAL: awake and alert, in no acute distress. SKIN: Warm and dry. HEAD: Atraumatic. Normocephalic. EYES: Pupils equal and round. No scleral icterus. Extraocular eye movements intact. ENT: No nasal bleeding or discharge. Mucous membranes pink and moist. NECK: Trachea midline. CARDIOVASCULAR: Regular rate and rhythm. No murmurs, gallops, or rubs. RESPIRATORY: No accessory muscle use. Clear to auscultation. Breath sounds equal bilaterally. GASTROINTESTINAL: Abdomen soft, nondistended. Mildly tender of the mid-abdomen on palpation. No rebound or guarding. MUSCULOSKELETAL: No obvious deformities. No clubbing. No cyanosis. No edema. NEUROLOGICAL: Awake and alert. No obvious cranial nerve deficits. Motor grossly within normal limits. Normal speech. PSYCHIATRIC: Appropriate mood and affect; insight and judgment normal. Data Data Last Documented VS Vital Signs Date Time Temp Pulse Resp B/P Pulse Ox O2 Delivery O2 Flow Rate FiO2 03/31/17 23:06 98.6 76 16 139/88 100 Orders Urinalysis - C+S If Indicated (03/31/17 23:30) Iv Access Insert/Monitor (03/31/17 23:30) Ecg Monitoring (03/31/17 23:30) Oximetry (03/31/17 23:30) Ondansetron Inj (Zofran Inj) (03/31/17 23:30) Sodium Chlor 0.9% 1000 Ml Inj (Ns 1000 M (03/31/17 23:30) Sodium Chloride 0.9% Flush (Ns Flush) (03/31/17 23:30) Ed Urine Pregnancytest Poc (03/31/17 23:30) MDM Medical Decision Making Medical Screen Exam Complete: Yes Emergency Medical Condition: Yes Differential Diagnosis Differential diagnosis of abdominal pain includes but is not limited to gastritis, pancreatitis, hepatitis, gastroenteritis, gallbladder disease, constipation, urinary retention, UTI, peptic ulcer disease, diverticulitis or appendicitis Narrative Course Patient presents with one day of abdominal pain, nausea, and vomiting. Patient is well hydrated, physical exam was unremarkable and urine test was negative. Patient recently started metformin and has follow-up with primary care physician on . Patient is stable and will be discharged to home with a prescription for nausea. Diagnosis Primary Impression: Abdominal pain Qualified Code: R10.33 - Periumbilical abdominal pain Patient Instructions: Abdominal Pain (ED), General Instructions Med/Other Pt SpecificInfo: Prescription(s) given Scripts Ondansetron 8 Mg Tab8 Mg PO TID #12 TAB Ref 1 Prov:Oumou Betancourt MD 04/01/17 Disposition: DISCHARGE HOME Condition: Stable Oumou Betancourt MD Apr 01, 2017 00:09
[2017-04-01] MEDS ORDERED: ONDA1TAB17 PO (00:21)
== END 2017-04-01 00:59 | disposition home or self-care (01) ==
LOC: NEPD 23:03
DX: R10.33 Periumbilical pain (principal); R11.2 Nausea with vomiting, unspecified; R19.7 Diarrhea, unspecified; E11.9 Type 2 diabetes mellitus without complications; I10 Essential (primary) hypertension; Z79.84 Long term (current) use of oral hypoglycemic drugs; Z86.69 Personal history of other diseases of the nervous system and sense organs
CPT/HCPCS: 84703; 96361; 96374; 99284; J2405; J7030

== ENCOUNTER 2017-05-26 23:14 | Observation (INO) | payer OTHER ==
[~2017-05-26] VITALS: Ht 180.3 cm; Wt 145.0 kg
[~2017-05-26 23:14] MED LIST changes: +ONDA1TAB17 PO
[2017-05-26 23:16] VITALS: BP 129/82; PULSE 84; RESP 16; TEMP 98.6; O2SAT 100
--- NOTE | 2017-05-26 23:50 | RADRPT ---
EXAM DATE/TIME: 05/26/2017 23:50 [facility] COMPARISON: CHEST SINGLE AP, June 16, 2014, 1:52. INDICATIONS : Chest pain and shortness of breath. MEDICAL HISTORY : None. SURGICAL HISTORY : None. ENCOUNTER: Initial ACUITY: 2 days PAIN SCORE: 9/10 LOCATION: Bilateral chest FINDINGS: Single frontal view of the chest demonstrates a normal-sized cardiac silhouette. No effusion, consoli dation, or pneumothorax is visualized. The bones and soft tissues demonstrate no acute abnormality. CONCLUSION: No acute cardiopulmonary abnormality is identified. Aman Milton MD on May 26, 2017 at 23:48 Board Certified Radiologist. This report was verified electronically.
[2017-05-27 00:33] LABS: AUTOMATED NEUTROPHIL # 5.8 TH/MM3 (1.8-7.7); BASOPHIL # 0.1 TH/MM3 (0-0.2); BASOPHIL % 0.8 % (0.0-2.0); EOSINOPHIL # 0.1 TH/MM3 (0-0.4); HEMATOCRIT 36.8 % (35.0-46.0); HEMO FLAGS DIFF FINAL; LYMPH % 39.1 % (9.0-44.0); LYMPHOCYTE # 4.3 TH/MM3 (1.0-4.8); MEAN CELL VOLUME 82.3 FL (80.0-100.0); MEAN CORPUSCULAR HEMOGLOBIN 27.6 PG (27.0-34.0); MEAN CORPUSCULAR HGB CONC 33.6 % (32.0-36.0); MONO % 6.4 % (0.0-8.0); NEUT % 52.7 % (16.0-70.0); PLATELET COUNT 353 TH/MM3 (150-450); RED BLOOD COUNT 4.47 MIL/MM3 (4.00-5.30); RED CELL DISTRIBUTION WIDTH 13.3 % (11.6-17.2); WHITE BLOOD COUNT 10.9 TH/MM3 (4.0-11.0)
[2017-05-27 00:52] LABS: ANION GAP 10 MEQ/L (5-15); BICARBONATE 26.1 MEQ/L (21.0-32.0); BLOOD UREA NITROGEN 16 MG/DL (7-18); CHLORIDE 103 MEQ/L (98-107); GLOMERULAR FILTRATION RATE 112 ML/MIN (>89); POTASSIUM 3.7 MEQ/L (3.5-5.1); SODIUM (NA) 139 MEQ/L (136-145)
[2017-05-27 00:56] LABS: CREATINE KINASE 148 U/L (26-192)
[2017-05-27 01:08] LABS: CKMB LESS THAN 0.5 NG/ML (0.5-3.6)
[2017-05-27 01:26] VITALS: BP 129/73; PULSE 79; RESP 18; O2SAT 100
[2017-05-27] MEDS ORDERED: IBUPROFEN 600 MG TAB PO ONE (01:45)
--- NOTE | 2017-05-27 02:04 | PD ---
HPI Chief Complaint: Chest Pain Time Seen by Provider: 01:32 Travel History International Travel<30 days: No Contact w/Intl Traveler<30days: No Traveled to known affect area: No History of Present Illness HPI 22yo F with PMH of HTN and DM presents to the ED with c/o intermittent mid sternal chest pain for 3 days. States it is pressure like and associated with sob. Denies any fever, n/v, abdominal pain, focal weakness or numbness. States she had similar pain high school. Said she had fluid around her heart. Denies any history of PE/DVT, oral contraceptive pills, cig smoking, recent travel or surgery. Does not have any soil chemist. No family history of sudden cardiac . PFSH Past Medical History Cancer: No Cardiovascular Problems: Yes (HTN) Developmental Delay: No Diabetes: Yes Patient Takes Glucophage: No Diminished Hearing: No Gastrointestinal Disorders: No Genitourinary: No Hypertension: Yes Implanted Vascular Access Dvce: No Reproductive: No Respiratory: No Immunizations Current: Yes Migraines: Yes Tetanus Vaccination: Unknown ?: Not : 0 Past Surgical History Surgical History: No Previous Surgery Other Surgery: No Social History Alcohol Use: No Tobacco Use: No Substance Use: No Allergies-Medications (Allergen,Severity, Reaction): Coded Allergies: acetaminophen (Unverified Allergy, Mild, THROAT ITCHES/DAVIES, 05/26/17) Reported Meds & Prescriptions Reported Meds & Active Scripts Active Ondansetron (Ondansetron HCl) 8 Mg Tab 8 Mg PO TID Epipen 2-Mynor Inj (Epinephrine) 0.3 Mg/0.3 Ml Pfpen 0.3 Mg IM ONCE PRN Prednisone 20 Mg Tab 20 Mg PO BID 5 Days Pepcid (Famotidine) 20 Mg Tab 20 Mg PO BID Bere-D 24 Hour Allergy (Fexofenadine-Pseudoephedrine ER 24 HR) 180-240 Eloy 1 Tab PO DAILY Reported Metformin (Metformin HCl) 500 Mg Tab 500 Mg PO DAILY With a meal Hydrochlorothiazide 12.5 Mg Cap 50 Mg PO DAILY Review of Systems Except as stated in HPI: all other systems reviewed are Neg Physical Exam Narrative GENERAL: 22yo F in mild distress. SKIN: Focused skin assessment warm/dry. HEAD: Atraumatic. Normocephalic. EYES: Pupils equal and round. No scleral icterus. No injection or drainage. ENT: No nasal bleeding or discharge. Mucous membranes pink and moist. NECK: Trachea midline. No JVD. CARDIOVASCULAR: Regular rate and rhythm. No murmur appreciated. RESPIRATORY: No accessory muscle use. Clear to auscultation. Breath sounds equal bilaterally. CHEST WALL: +TTP mid sternum. GASTROINTESTINAL: Abdomen soft, non-tender, nondistended. MUSCULOSKELETAL: No obvious deformities. No clubbing. No cyanosis. No edema. NEUROLOGICAL: Awake and alert. No obvious cranial nerve deficits. Motor grossly within normal limits. Normal speech. PSYCHIATRIC: Appropriate mood and affect; insight and judgment normal. Data Data Last Documented VS Vital Signs Date Time Temp Pulse Resp B/P (MAP) Pulse Ox O2 Delivery O2 Flow Rate FiO2 05/27/17 03:20 98.1 78 18 133/59 (83) 99 Room Air Orders Orders Electrocardiogram (05/26/17 23:30) Complete Blood Count With Diff (05/26/17 23:30) Basic Metabolic Panel (Bmp) (05/26/17 23:30) Ckmb (Isoenzyme) Profile (05/26/17 23:30) Troponin I (05/26/17 23:30) Chest, Single Ap (05/26/17 23:30) CKMB (05/27/17 00:08) CKMB% (05/27/17 00:08) Ibuprofen (Motrin) (05/27/17 01:45) Diazepam (Valium) (05/27/17 03:30) Aspirin (Aspirin) (05/27/17 04:15) Admit Order (Ed Use Only) (05/27/17 04:09) Activity Bed Rest With Brp (05/27/17 04:09) Vital Signs (Adult) Q4H (05/27/17 04:09) Cardiac Rhythm .As Directed (05/27/17 04:09) Notify Dr: Other .PRN (05/27/17 04:09) Notify Parameters (05/27/17 04:09) Resp Oxygen Nasal Cannula (05/27/17 ) Ckmb (Isoenzyme) Profile (05/27/17 04:09) Ckmb (Isoenzyme) Profile (05/27/17 07:09) Troponin I (05/27/17 04:09) Troponin I (05/27/17 07:09) Electrocardiogram (05/27/17 04:09) Electrocardiogram (05/27/17 07:09) ^ Obtain (05/27/17 04:09) Sodium Chloride 0.9% Flush (Ns Flush) (05/27/17 04:15) Sodium Chloride 0.9% Flush (Ns Flush) (05/27/17 09:00) Web Applications Administrator / Telemetry [email or web address] (05/27/17 04:09) CKMB (05/27/17 04:32) CKMB% (05/27/17 04:32) CKMB (05/27/17 07:45) CKMB% (05/27/17 07:45) Labs Laboratory Tests Test 05/27/17 00:08 White Blood Count 10.9 TH/MM3 Red Blood Count 4.47 MIL/MM3 Hemoglobin 12.4 GM/DL Hematocrit 36.8 % Mean Corpuscular Volume 82.3 FL Mean Corpuscular Hemoglobin 27.6 PG Mean Corpuscular Hemoglobin Concent 33.6 % Red Cell Distribution Width 13.3 % Platelet Count 353 TH/MM3 Mean Platelet Volume 7.0 FL Neutrophils (%) (Auto) 52.7 % Lymphocytes (%) (Auto) 39.1 % Monocytes (%) (Auto) 6.4 % Eosinophils (%) (Auto) 1.0 % Basophils (%) (Auto) 0.8 % Neutrophils # (Auto) 5.8 TH/MM3 Lymphocytes # (Auto) 4.3 TH/MM3 Monocytes # (Auto) 0.7 TH/MM3 Eosinophils # (Auto) 0.1 TH/MM3 Basophils # (Auto) 0.1 TH/MM3 CBC Comment DIFF FINAL Differential Comment Blood Urea Nitrogen 16 MG/DL Creatinine 0.78 MG/DL Random Glucose 118 MG/DL Calcium Level 8.8 MG/DL Sodium Level 139 MEQ/L Potassium Level 3.7 MEQ/L Chloride Level 103 MEQ/L Carbon Dioxide Level 26.1 MEQ/L Anion Gap 10 MEQ/L Estimat Glomerular Filtration Rate 112 ML/MIN Total Creatine Kinase 148 U/L Creatine Kinase MB LESS THAN 0.5 NG/ML Troponin I LESS THAN 0.02 NG/ML MDM Medical Decision Making Medical Screen Exam Complete: Yes Emergency Medical Condition: Yes Interpretation(s) EKG: NSR 76bpm. Normal axis. Normal voltage. No ST segment elevation or depression. Differential Diagnosis ACS vs. Atypical chest pain vs. musculoskeletal pain Narrative Course 22yo F with very atypical chest pain. Labs reviewed, no leukocytosis. Troponin negative. CXR negative. VS stable. Pt given ibuprofen and valium with improvement of pain. Pt is PERC negative, so no D-dimer needed. However, pt has risk factors such as obesity, HTN, diabetes and has not had a stress test at all. Although she is very young for CAD, will admit to chest pain center for serial EKG and cardiac enzymes. Pt given aspirin 325mg PO. Pt is currently chest pain free. Diagnosis Primary Impression: Chest pain Qualified Codes: R07.9 - Chest pain, unspecified Admitting Information Admitting Physician Requests: Observation Additional Instructions: Please follow up with your primary care physician in 1-2 days. Return to the ED if symptoms worsen. Carmita Santa DO May 27, 2017 02:04
[2017-05-27 03:20] VITALS: BP 133/59; PULSE 78; RESP 18; TEMP 98.1; O2SAT 99
[2017-05-27] MEDS ORDERED: DIAZEPAM 5 MG TAB PO ONE (03:30)
[2017-05-27] MEDS ORDERED: ASPIRIN 325 MG TAB PO ONE (04:15)
[2017-05-27] MEDS ORDERED: SODIUM CHLORIDE 0.9% FLUSH 10 ML FLUSH IV FLUSH PRN (04:15)
[2017-05-27 04:41] VITALS: O2SAT 99
[2017-05-27 05:18] LABS: CREATINE KINASE 142 U/L (26-192)
[2017-05-27 05:30] LABS: CKMB LESS THAN 0.5 NG/ML (0.5-3.6)
[2017-05-27 06:39] VITALS: BP 142/65; PULSE 75; RESP 18; TEMP 98.1; O2SAT 100
--- NOTE | 2017-05-27 08:32 | HHI.HP ---
HPI Primary Care Physician Lurdes Sorto [facility] Chief Complaint Chest pain History of Present Illness 22-year-old female with history of hypertension and diabetes type 2 presents to emergency room for further evaluation of chest pain. Onset 3 days ago. Location substernal. Described as a intermittent pressure. Duration varies from minutes to hours. Nonexertional. No associated symptoms of nausea, vomiting, shortness breath, or diaphoresis. No radiation of pain. Precipitating factors she relates to stress. Chest pain began 3 days ago after receiving an eviction notice. Relieving factors relaxing and knowing that she could move back with her mother. Currently she is chest pain-free. Reports she feels much better after speaking with her mother. Endorses she is active and with exertion does not develop chest pressure. Review of Systems General: No fatigue,weakness, fever, chills, or recent illness. Has been in her general state of health. Increase situational stress due to recent eviction notice. Also reports 2 of her 3 children currently have lead poisoning him apartment she was renting from. Reports diabetes since , but only taking metformin 500mg once daily, reports she never required insulin. Diagnosis with hypertension in 9 th grade. CV: As stated above. No current chest pain or pressure. No palpitations or dizziness. RESP: No SOB, cough, sputum production, or history of asthma GI: No nausea or vomiting. 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 No injury or trauma to chest wall. NEURO: No LOC PSYCH: Current situational stress including taking care of 3 young children, her work hours have been reduced, attending night school, and recently told 2 of her 3 children have lead poisoning. Reports she feels much relief after talking with her mother who offered for her and the children to stay with her. Past Family Social History Allergies: Coded Allergies: acetaminophen (Unverified Allergy, Mild, THROAT ITCHES/DAVIES, 05/26/17) Past Medical History Hypertension, diabetes type 2, migraines Past Surgical History None Reported Medications Active Ondansetron (Ondansetron HCl) 8 Mg Tab 8 Mg PO TID Epipen 2-Mynor Inj (Epinephrine) 0.3 Mg/0.3 Ml Pfpen 0.3 Mg IM ONCE PRN Prednisone 20 Mg Tab 20 Mg PO BID 5 Days Pepcid (Famotidine) 20 Mg Tab 20 Mg PO BID Bere-D 24 Hour Allergy (Fexofenadine-Pseudoephedrine ER 24 HR) 180-240 Eloy 1 Tab PO DAILY Metformin (Metformin HCl) 500 Mg Tab 500 Mg PO DAILY With a meal Hydrochlorothiazide 12.5 Mg Cap 50 Mg PO DAILY Active Ordered Medications Current Medications Medications (Trade) Dose Ordered Sig/Iwona Route Start Time Stop Time Status Last Admin (NS Flush) 2 ml UNSCH PRN IV FLUSH 05/27/17 04:15 (NS Flush) 2 ml BID IV FLUSH 05/27/17 09:00 Family History Noncontributory for early onset cardiovascular disease Social History Known diabetes and hypertension. No known hyperlipidemia. Diagnosed with hypertension in 9th grade. Reports diabetes since "" never prescribed insulin therapy, taking oral anti-glycemic. Lifelong nonsmoker. Denies any alcohol or illegal drug use. Single. Mother of 3 young children. 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 Past cardiac testing None Physical Exam Vital Signs Vital Signs Date Time Temp Pulse Resp B/P (MAP) Pulse Ox O2 Delivery O2 Flow Rate FiO2 05/27/17 06:39 98.1 75 18 142/65 (90) 100 Room Air 05/27/17 04:41 99 05/27/17 03:20 98.1 78 18 133/59 (83) 99 Room Air 05/27/17 01:26 79 18 129/73 (91) 100 Room Air 05/26/17 23:16 98.6 84 16 129/82 (98) 100 Room Air Physical Exam GENERAL: Alert WN, WD, NAD, pleasant, morbidly obese female CV: RRR, without murmur, rub, gallop, no JVD, S1-S2 no S3-S4. RESP: Clear lungs throughout bilateral, no crackles, wheeze, rhonchi. Nonlabored. Speaking in full sentences ABD: Soft, NT, ND, obese EXT: Pulses +24, no dependent edema MS: Normal tone 4 extremities, nontender, no obvious deformities, full range of motion NEURO: CN II through CN XII grossly intact, motor strength 5/5 PSYCH: A+O 3, pleasant affect, appropriate speech, appropriate mood and affect , insight and judgment SKIN: Normal turgor, normal texture Laboratory Laboratory Tests Test 05/27/17 00:08 05/27/17 04:32 05/27/17 07:45 White Blood Count 10.9 Red Blood Count 4.47 Hemoglobin 12.4 Hematocrit 36.8 Mean Corpuscular Volume 82.3 Mean Corpuscular Hemoglobin 27.6 Mean Corpuscular Hemoglobin Concent 33.6 Red Cell Distribution Width 13.3 Platelet Count 353 Mean Platelet Volume 7.0 Neutrophils (%) (Auto) 52.7 Lymphocytes (%) (Auto) 39.1 Monocytes (%) (Auto) 6.4 Eosinophils (%) (Auto) 1.0 Basophils (%) (Auto) 0.8 Neutrophils # (Auto) 5.8 Lymphocytes # (Auto) 4.3 Monocytes # (Auto) 0.7 Eosinophils # (Auto) 0.1 Basophils # (Auto) 0.1 CBC Comment DIFF FINAL Differential Comment Blood Urea Nitrogen 16 Creatinine 0.78 Random Glucose 118 Calcium Level 8.8 Sodium Level 139 Potassium Level 3.7 Chloride Level 103 Carbon Dioxide Level 26.1 Anion Gap 10 Estimat Glomerular Filtration Rate 112 Total Creatine Kinase 148 142 Creatine Kinase MB LESS THAN 0.5 LESS THAN 0.5 Troponin I LESS THAN 0.02 LESS THAN 0.02 Result Diagram: 05/27/17705/27/177 Imaging Last Impressions Chest X-Ray 05/26/172329 Signed Impressions: Service Date/Time: Friday, May 26, 2017 23:50 - CONCLUSION: No acute cardiopulmonary abnormality is identified. Aman Milton MD Course EKG Normal sinus rhythm, normal axis, slight nonspecific ST changes inferior lead III only Caprini VTE Risk Assessment Caprini VTE Risk Assessment: No/Low Risk (score <= 1) Caprini Risk Assessment Model Point Value = 1 Point Value = 2 Point Value = 3 Point Value = 5 Age 41-60 Minor surgery BMI > 25 kg/m2 Swollen legs Varicose veins or History of unexplained or recurrent spontaneous Oral contraceptives or hormone replacement Sepsis (< 1 month) Serious lung disease, including pneumonia (< 1 month) Abnormal pulmonary function Acute myocardial infarction Congestive heart failure (< 1 month) History of inflammatory bowel disease Medical patient at bed rest Age 61-74 Arthroscopic surgery Major open surgery (> 45 min) Laparoscopic surgery (> 45 min) Malignancy Confined to bed (> 72 hours) Immobilizing plaster cast Central venous access Age >= 75 History of VTE Family history of VTE Factor V Leiden Prothrombin [id number] Lupus anticoagulant Anticardiolipin antibodies Elevated serum homocysteine Heparin-induced thrombocytopenia Other congenital or acquired thrombophilia Stroke (< 1 month) Elective arthroplasty Hip, pelvis, or leg fracture Acute spinal cord injury (< 1 month) Prophylaxis Regimen Total Risk Factor Score Risk Level Prophylaxis Regimen 0-1 Low Early ambulation 2 Moderate Order ONE of the following: *Sequential Compression Device (SCD) *Heparin 5000 units SQ BID 3-4 Higher Order ONE of the following medications: *Heparin 5000 units SQ TID *Enoxaparin/Lovenox 40 mg SQ daily (WT < 150 kg, CrCl > 30 mL/min) *Enoxaparin/Lovenox 30 mg SQ daily (WT < 150 kg, CrCl > 10-29 mL/min) *Enoxaparin/Lovenox 30 mg SQ BID (WT < 150 kg, CrCl > 30 mL/min) AND/OR *Sequential Compression Device (SCD) 5 or more Highest Order ONE of the following medications: *Heparin 5000 units SQ TID (Preferred with Epidurals) *Enoxaparin/Lovenox 40 mg SQ daily (WT < 150 kg, CrCl > 30 mL/min) *Enoxaparin/Lovenox 30 mg SQ daily (WT < 150 kg, CrCl > 10-29 mL/min) *Enoxaparin/Lovenox 30 mg SQ BID (WT < 150 kg, CrCl > 30 mL/min) AND *Sequential Compression Device (SCD) Assessment and Plan Assessment and Plan #1 Atypical chest pain-admitted to chest pain center. Seen and evaluated by Dr. Juanis Xavier. Ruled out with 3 sets of EKGs and cardiac enzymes. Discussed in length chest discomfort likely situational stress related, patient agrees stating chest discomfort improved after speaking with mother. Patient requested exercise stress test. Explained we could completed exercise stress test before discharge, discussion potential false positive results due to her young age. Informed if exercise stress test had a positive result, a chemical stress test the next required step. Patient no longer requests stress test, stating she does not want to a nuclear exam. Her decision reasonable as likelihood of her having coronary artery extremely low. Reassurance provided chest discomfort likely from her current situational stress. Encouraged her to follow up with PCP if develops exertional chest discomfort. Return to ER for any further concern. Discharge this morning. No changes in home medications. Patient agreeable to plan of care. Lana Pedraza May 27, 2017 08:32
--- NOTE | 2017-05-27 08:34 | HHI.DCPOC ---
Discharge Care Plan Diagnosis: (1) Atypical chest pain (2) Situational stress Goals to Promote Your Health * To prevent worsening of your condition and complications * To maintain your health at the optimal level Directions to Meet Your Goals Take your medications as prescribed Follow your dietary instruction Follow activity as directed Keep your appointments as scheduled Take your immunizations and boosters as scheduled If your symptoms worsen call your PCP, if no PCP go to Urgent Care Center or Emergency Room Smoking is Dangerous to Your Health. Avoid second hand smoke Call the 24-hour hour crisis hotline for domestic abuse at Lana Pderaza May 27, 2017 08:34
[2017-05-27 08:35] LABS: CREATINE KINASE 127 U/L (26-192)
[2017-05-27 08:47] LABS: CKMB 0.7 NG/ML (0.5-3.6)
[2017-05-27] MEDS ORDERED: SODIUM CHLORIDE 0.9% FLUSH 10 ML FLUSH IV FLUSH SCH (09:00)
--- NOTE | 2017-05-27 09:54 | EKG ---
Date Performed: 05/26/2017 Time Performed: 23:58:23 PTAGE: 22 years EKG: Sinus rhythm NORMAL ECG Since PREVIOUS TRACING , no significant change noted PREVIOUS TRACIN07/01/2014 15.47 DOCTOR: Juanis Xavier Interpretating Date/Time 05/27/2017 09:52:42
--- NOTE | 2017-05-27 09:54 | EKG ---
Date Performed: 05/27/2017 Time Performed: 04:44:58 PTAGE: 22 years EKG: Sinus rhythm NORMAL ECG Since PREVIOUS TRACING , no significant change noted PREVIOUS TRACIN05/26/2017 23.58 DOCTOR: Juanis Xavier Interpretating Date/Time 05/27/2017 09:52:54
--- NOTE | 2017-05-27 16:28 | EKG ---
Date Performed: 05/27/2017 Time Performed: 09:02:54 PTAGE: 22 years EKG: Sinus rhythm NORMAL ECG Since PREVIOUS TRACING , no significant change noted PREVIOUS TRACIN05/27/2017 04.44 DOCTOR: Juanis Xavier Interpretating Date/Time 05/27/2017 16:26:58
== END 2017-05-28 13:58 | disposition home or self-care (01) ==
LOC: NEPE 23:14 → NEDA 05-27 04:11 → NEDH 05-27 08:43
PROVIDERS: ADMIT Internal Medicine Cardiovascular Disease; ATTEND Internal Medicine Cardiovascular Disease
DX: R07.89 Other chest pain (principal); F43.0 Acute stress reaction; E11.9 Type 2 diabetes mellitus without complications; I10 Essential (primary) hypertension; G43.909 Migraine, unspecified, not intractable, without status migrainosus; R06.02 Shortness of breath; Z79.84 Long term (current) use of oral hypoglycemic drugs
CPT/HCPCS: 71010; 80048; 82550; 82552; 84484; 85025; 93005; 99285; G0378

== ENCOUNTER 2017-06-25 23:44 | Emergency (ER) | payer OTHER ==
[~2017-06-25] VITALS: Ht 180.3 cm; Wt 157.0 kg
[2017-06-25 23:46] VITALS: BP 149/87; PULSE 62; RESP 16; TEMP 98.5; O2SAT 100
--- NOTE | 2017-06-26 00:18 | PD ---
HPI Chief Complaint: Back/ Neck Pain or Injury Time Seen by Provider: 00:08 Travel History International Travel<30 days: No Contact w/Intl Traveler<30days: No Traveled to known affect area: No History of Present Illness HPI 22-year-old female with history of hypertension presents to the emergency department for evaluation right neck and shoulder pain. Patient states this started approximately a week ago. She is not call any injury. She states she has been working out and dancing. This may have something to do with it but she is unsure. She states the pain is a constant, ache, intermittently sharp with movement and sometimes radiates into her right shoulder. Denies focal deficits or weakness. She has not taken anything for this except she went to [facility] last evening and she alleges they gave her Lortab. She states she cannot take this because she is allergic to Tylenol. She has no other symptoms to report. PFSH Past Medical History Cancer: No Cardiovascular Problems: Yes (HTN) Developmental Delay: No Diabetes: Yes (TYPE 1) Patient Takes Glucophage: Yes Diminished Hearing: No Gastrointestinal Disorders: No Genitourinary: No Hypertension: Yes Implanted Vascular Access Dvce: No Reproductive: No Respiratory: No Immunizations Current: Yes Migraines: Yes ?: Not LMP: 06/25/17 : 0 Past Surgical History Other Surgery: No Social History Alcohol Use: Yes (OCCASIONALLY) Tobacco Use: No Substance Use: No Allergies-Medications (Allergen,Severity, Reaction): Coded Allergies: acetaminophen (Unverified Allergy, Mild, THROAT ITCHES/DAVIES, 06/25/17) Reported Meds & Prescriptions Reported Meds & Active Scripts Active Robaxin (Methocarbamol) 750 Mg Tab 750 Mg PO QID PRN Ondansetron (Ondansetron HCl) 8 Mg Tab 8 Mg PO TID Epipen 2-Mynor Inj (Epinephrine) 0.3 Mg/0.3 Ml Pfpen 0.3 Mg IM ONCE PRN Prednisone 20 Mg Tab 20 Mg PO BID 5 Days Pepcid (Famotidine) 20 Mg Tab 20 Mg PO BID Bere-D 24 Hour Allergy (Fexofenadine-Pseudoephedrine ER 24 HR) 180-240 Eloy 1 Tab PO DAILY Reported Metformin (Metformin HCl) 500 Mg Tab 500 Mg PO DAILY With a meal Hydrochlorothiazide 12.5 Mg Cap 50 Mg PO DAILY Review of Systems Except as stated in HPI: all other systems reviewed are Neg Physical Exam Narrative GENERAL: Obese female patient, ambulatory and in no acute distress SKIN: Focused skin assessment warm/dry. HEAD: Atraumatic. Normocephalic. EYES: Pupils equal and round. No scleral icterus. No injection or drainage. ENT: No nasal bleeding or discharge. Mucous membranes pink and moist. NECK: Trachea midline. No JVD. Dukes palpation along the right trapezius musculature. No limitations in range of motion. CARDIOVASCULAR: Regular rate and rhythm. No murmur appreciated. RESPIRATORY: No accessory muscle use. Clear to auscultation. Breath sounds equal bilaterally. GASTROINTESTINAL: Abdomen soft, non-tender, nondistended. Hepatic and splenic margins not palpable. MUSCULOSKELETAL: No obvious deformities. No clubbing. No cyanosis. No edema. NEUROLOGICAL: Awake and alert. No obvious cranial nerve deficits. Motor grossly within normal limits. Normal speech. PSYCHIATRIC: Appropriate mood and affect; insight and judgment normal. Data Data Last Documented VS Vital Signs Date Time Temp Pulse Resp B/P (MAP) Pulse Ox O2 Delivery O2 Flow Rate FiO2 06/26/17 01:14 06/25/17 23:46 98.5 62 16 100 Room Air Orders Orders Ketorolac Inj (Toradol Inj) (06/26/17 00:30) Orphenadrine Inj (Norflex Inj) (06/26/17 00:30) MDM Medical Decision Making Medical Screen Exam Complete: Yes Emergency Medical Condition: Yes Medical Record Reviewed: Yes Differential Diagnosis Muscle strain versus discogenic pain versus radiculopathy Narrative Course 22-year-old female presents to the emergency department for evaluation neck pain. Physical exam is reassuring. Patient has no focal deficits or weakness. This is likely muscle spasm. Patient was given muscle relaxant. She is counseled on care and encouraged to follow-up with the primary care provider. She agrees to return immediately with any acute worsening of symptoms. Diagnosis Primary Impression: Neck pain Referrals: Primary Care Physician Patient Instructions: Acute Neck Pain (ED), General Instructions Additional Instructions: Warm moist heat may help alleviate symptoms Follow up with your primary care provider Return to ED with acute worsening of symptoms Med/Other Pt SpecificInfo: Prescription(s) given Scripts Methocarbamol (Robaxin) 750 Mg Tab 750 MG PO QID Y for MUSCLE SPASM, #20 TAB 0 Refills Prov: Mary Grace Dodge 06/26/17 Disposition: 01 DISCHARGE HOME Condition: Stable Mary Grace Dodge Jun 26, 2017 00:18
[2017-06-26] MEDS ORDERED: ORPHENADRINE INJ 60 MG/2 ML AMP IM ONE (00:30)
[2017-06-26] MEDS ORDERED: KETOROLAC TROMETHAMINE 60 MG/2 ML (IM) VIAL IM ONE (00:30)
[2017-06-26] MEDS ORDERED: ROBA750T PO (01:00)
== END 2017-06-26 01:14 | disposition home or self-care (01) ==
LOC: NEPD 23:44
DX: M54.2 Cervicalgia (principal); M25.511 Pain in right shoulder; I10 Essential (primary) hypertension; E11.9 Type 2 diabetes mellitus without complications; Z79.84 Long term (current) use of oral hypoglycemic drugs
CPT/HCPCS: 96372; 99284; J1885; J2360

== ENCOUNTER 2017-07-07 10:22 | Emergency (ER) | payer OTHER ==
[~2017-07-07] VITALS: Ht 180.3 cm; Wt 150.0 kg
[~2017-07-07 10:22] MED LIST changes: +ROBA750T PO
[2017-07-07 10:26] VITALS: BP 152/89; PULSE 78; RESP 15; TEMP 98.7; O2SAT 99
[2017-07-07] MEDS ORDERED: PENI250T PO (12:35)
--- NOTE | 2017-07-07 12:36 | PD ---
HPI Chief Complaint: Oral / Dental Pain or Problem Time Seen by Provider: 12:09 Travel History International Travel<30 days: No Contact w/Intl Traveler<30days: No Traveled to known affect area: No History of Present Illness HPI 22-year-old female with chief complaint of right upper dental pain 7 days. Patient denies fever chills. She reports she noticed facial swelling today prompting her visit to the ER. She reports multiple dental abscesses in the past. She is currently uninsured and unable to follow-up with dentist. Symptom severity is mild. No alleviating factors. PFSH Past Medical History Cancer: No Cardiovascular Problems: Yes (HTN) Developmental Delay: No Diabetes: Yes Patient Takes Glucophage: Yes (07/06/17 0900) Diminished Hearing: No Gastrointestinal Disorders: No Genitourinary: No Hypertension: Yes Implanted Vascular Access Dvce: No Reproductive: No Respiratory: No Immunizations Current: Yes Migraines: Yes Tetanus Vaccination: < 5 Years ?: Not LMP: 2 weeks ago : 0 Past Surgical History Surgical History: No Previous Surgery Other Surgery: No Social History Alcohol Use: Yes (OCCASIONALLY) Tobacco Use: No Substance Use: No Allergies-Medications (Allergen,Severity, Reaction): Coded Allergies: acetaminophen (Unverified Allergy, Mild, THROAT ITCHES/DAVIES, 06/25/17) Reported Meds & Prescriptions Reported Meds & Active Scripts Active Penicillin V Potassium 250 Mg Tab 250 Mg PO Q6H 7 Days Epipen 2-Mynor Inj (Epinephrine) 0.3 Mg/0.3 Ml Pfpen 0.3 Mg IM ONCE PRN Reported Metformin (Metformin HCl) 500 Mg Tab 500 Mg PO DAILY With a meal Hydrochlorothiazide 12.5 Mg Cap 50 Mg PO DAILY Review of Systems Except as stated in HPI: all other systems reviewed are Neg Physical Exam Narrative GENERAL: Alert well appearing female NAD SKIN: Warm and dry. HEAD: Normocephalic. EYES: No scleral icterus. No injection or drainage. MOUTH: Mucous membranes moist, no lesions, tongue and gums appear normal. Tooth #2 decayed with surrounding gum erythema. NECK: Supple, trachea midline. No JVD or lymphadenopathy. Data Data Last Documented VS Vital Signs Date Time Temp Pulse Resp B/P (MAP) Pulse Ox O2 Delivery O2 Flow Rate FiO2 07/07/17 12:39 07/07/17 10:26 98.7 78 15 99 MDM Medical Decision Making Medical Screen Exam Complete: Yes Emergency Medical Condition: Yes Differential Diagnosis Dental abscess, dental caries, periodontal disease Narrative Course 22-year-old female with chief complaint of right upper dental pain 1 week. Patient has a decayed and fractured tooth. Tooth #2 is decayed with surrounding gum erythema and tenderness. She denies fever chills. Diagnosis Primary Impression: Dental infection Referrals: Dentist Additional Instructions: Take the antibiotics as prescribed. Take [id number] Motrin 600 800 mg every 6-8 hours as needed for pain. Follow-up with her dentist. Scripts Penicillin V Potassium (Penicillin V Potassium) 250 Mg Tab 250 MG PO Q6H for Infection for 7 Days, #28 TAB 0 Refills Prov: Gisell Vargas 07/07/17 Disposition: 01 DISCHARGE HOME Condition: Stable Gisell Vargas Jul 07, 2017 12:36
== END 2017-07-07 12:42 | disposition home or self-care (01) ==
LOC: NEPD 10:22
DX: K04.7 Periapical abscess without sinus (principal); I10 Essential (primary) hypertension; E11.9 Type 2 diabetes mellitus without complications
CPT/HCPCS: 99283

== ENCOUNTER 2017-08-23 23:20 | Emergency (ER) | payer OTHER ==
[~2017-08-23] VITALS: Ht 180.3 cm; Wt 145.0 kg
[~2017-08-23 23:20] MED LIST changes: -FAMO1TAB37 PO; -FEXO1TAB97 PO; -ONDA1TAB17 PO; +PENI250T PO; -PRED20 PO; -ROBA750T PO
[2017-08-23] MEDS ORDERED: IOHEXOL 350 MG/ML 10 ML VIAL (for RAD DIAG) IVCONTRAST ONE (23:21)
[2017-08-23 23:23] VITALS: BP 134/77; PULSE 83; RESP 16; TEMP 98.2; O2SAT 98
[2017-08-23 23:54] VITALS: RESP 18; O2SAT 99
[2017-08-24] MEDS ORDERED: SODIUM CHLORIDE 0.9% FLUSH 10 ML FLUSH IV FLUSH PRN
[2017-08-24] MEDS ORDERED: KETOROLAC TROMETHAMINE 30 MG/ML (IVP) VIAL IVP ONE
[2017-08-24 00:32] LABS: BACTERIA, URINE FEW /hpf; BLOOD, URINE NEG (NEG); COMMENT (UR) CULTURE INDICATED; CULTURE IF INDICATED CULTURE INDICATED; GLUCOSE,URINE NEG (NEG); KETONE, URINE NEG (NEG); MUCUS URINE FEW /lpf (OCC); NITRITE,URINE NEG (NEG); SQUAMOUS EPITHELIAL CELL URINE 10 /hpf (0-5); URINE COLOR YELLOW (YELLW/STRAW)
[2017-08-24 00:33] LABS: AUTOMATED NEUTROPHIL # 9.4 TH/MM3 (1.8-7.7); BASOPHIL # 0.1 TH/MM3 (0-0.2); BASOPHIL % 0.5 % (0.0-2.0); EOSINOPHIL # 0.1 TH/MM3 (0-0.4); EOSINOPHIL % 0.8 % (0.0-4.0); HEMATOCRIT 37.1 % (35.0-46.0); HEMO FLAGS DIFF FINAL; LYMPH % 27.6 % (9.0-44.0); LYMPHOCYTE # 3.9 TH/MM3 (1.0-4.8); MEAN CELL VOLUME 84.1 FL (80.0-100.0); MEAN CORPUSCULAR HEMOGLOBIN 28.6 PG (27.0-34.0); MEAN CORPUSCULAR HGB CONC 34.1 % (32.0-36.0); MONO % 4.8 % (0.0-8.0); NEUT % 66.3 % (16.0-70.0); PLATELET COUNT 350 TH/MM3 (150-450); RED BLOOD COUNT 4.41 MIL/MM3 (4.00-5.30); RED CELL DISTRIBUTION WIDTH 13.4 % (11.6-17.2); WHITE BLOOD COUNT 14.2 TH/MM3 (4.0-11.0)
[2017-08-24 00:38] LABS: ANION GAP 8 MEQ/L (5-15); AST (GOT) 10 U/L (15-37); BICARBONATE 27.9 MEQ/L (21.0-32.0); BLOOD UREA NITROGEN 11 MG/DL (7-18); CHLORIDE 105 MEQ/L (98-107); GLOMERULAR FILTRATION RATE 110 ML/MIN (>89); POTASSIUM 3.6 MEQ/L (3.5-5.1); SODIUM (NA) 141 MEQ/L (136-145)
[2017-08-24 00:39] LABS: ALT (GPT) 16 U/L (10-53)
[2017-08-24 00:41] LABS: ALKALINE PHOSPHATASE 80 U/L (45-117); TOTAL BILIRUBIN ADULT 0.3 MG/DL (0.2-1.0)
--- NOTE | 2017-08-24 01:07 | RADRPT ---
EXAM DATE/TIME: 08/24/2017 00:51 [facility] COMPARISON: CT ABDOMEN & PELVIS W CONTRAST, May 29, 2014, 17:28. INDICATIONS : Abdomen pain. IV CONTRAST: 100 cc Omnipaque 350 (iohexol) IV ORAL CONTRAST: No oral contrast ingested. RADIATION DOSE: 27.21 CTDIvol (mGy) ; Patient body habitus MEDICAL HISTORY : Hypertension. Diabetes mellitus type 1. SURGICAL HISTORY : None. ENCOUNTER: Initial ACUITY: 1 day PAIN SCALE: 9/10 LOCATION: Bilateral abdomen TECHNIQUE: Volumetric scanning of the abdomen and pelvis was performed. Using automated exposure control and ad justment of the mA and/or kV according to patient size, radiation dose was kept as low as reasonably achievable to obtain optimal diagnostic quality images. DICOM format image data is available electro nically for review and comparison. FINDINGS: LOWER LUNGS: The visualized lower lungs are clear. LIVER: Homogeneous density without lesion. There is no dilation of the biliary tree. No calcified gallston es. SPLEEN: Normal size without lesion. PANCREAS: Within normal limits. KIDNEYS: Normal in size and shape. There is no mass, stone or hydronephrosis. ADRENAL GLANDS: Within normal limits. VASCULAR: There is no aortic aneurysm. BOWEL/MESENTERY: No oral contrast was given limiting the sensitivity. The stomach, small bowel, and colon demonstrate no acute abnormality. There is no free intraperitoneal air or fluid. ABDOMINAL WALL: Within normal limits. RETROPERITONEUM: There is no lymphadenopathy. BLADDER: No wall thickening or mass. REPRODUCTIVE: Within normal limits. INGUINAL: There is no lymphadenopathy or hernia. MUSCULOSKELETAL: Within normal limits for patient age. CONCLUSION: Unremarkable exam. Yasir Maravilla MD on August 24, 2017 at 1:04 Board Certified Radiologist. This report was verified electronically.
[2017-08-24 01:30] VITALS: BP 129/70; PULSE 70; RESP 18; O2SAT 98
[2017-08-24] MEDS ORDERED: CEPH-460 PO (01:54)
--- NOTE | 2017-08-24 01:54 | PD ---
HPI Chief Complaint: Abdominal Pain Time Seen by Provider: 23:32 Travel History International Travel<30 days: No Contact w/Intl Traveler<30days: No Traveled to known affect area: No History of Present Illness HPI Patient's 22-year-old female presents emergency department for evaluation of low pelvic pain since yesterday. The patient states she is concerned that she might have an appendicitis. Denies any histories in the past denies any medical problems. Cannot think of any alleviating or exacerbating factors. States the pain is mild to moderate, cramping, pelvic without radiation. No vaginal bleeding or vaginal discharge. PFSH Past Medical History Cancer: No Cardiovascular Problems: Yes (HTN) Developmental Delay: No Diabetes: Yes Patient Takes Glucophage: Yes (METFORMIN 0900 08/23/17) Diminished Hearing: No Gastrointestinal Disorders: No Genitourinary: No Hypertension: Yes Implanted Vascular Access Dvce: No Reproductive: No Respiratory: No Immunizations Current: Yes Migraines: Yes ?: Not LMP: 08/18/17 : 0 Past Surgical History Surgical History: No Previous Surgery Other Surgery: No Social History Alcohol Use: Yes (OCCASIONALLY) Tobacco Use: No Substance Use: No Allergies-Medications (Allergen,Severity, Reaction): Coded Allergies: acetaminophen (Unverified Allergy, Mild, THROAT ITCHES/DAVIES, 08/23/17) Reported Meds & Prescriptions Reported Meds & Active Scripts Active Keflex (Cephalexin) 500 Mg Cap 500 Mg PO Q6H 5 Days Penicillin V Potassium 250 Mg Tab 250 Mg PO Q6H 7 Days Epipen 2-Mynor Inj (Epinephrine) 0.3 Mg/0.3 Ml Pfpen 0.3 Mg IM ONCE PRN Reported Metformin (Metformin HCl) 500 Mg Tab 500 Mg PO DAILY With a meal Hydrochlorothiazide 12.5 Mg Cap 50 Mg PO DAILY Review of Systems Except as stated in HPI: all other systems reviewed are Neg Physical Exam Narrative GENERAL: Well-developed well-nourished no obvious distress SKIN: Focused skin assessment warm/dry. HEAD: Atraumatic. Normocephalic. EYES: Pupils equal and round. No scleral icterus. No injection or drainage. ENT: No nasal bleeding or discharge. Mucous membranes pink and moist. NECK: Trachea midline. No JVD. CARDIOVASCULAR: Regular rate and rhythm. No murmur appreciated. RESPIRATORY: No accessory muscle use. Clear to auscultation. Breath sounds equal bilaterally. GASTROINTESTINAL: Abdomen soft, non-tender, nondistended. Hepatic and splenic margins not palpable. No rebound no percussive tenderness, psoas obturator signs negative. Abdominal exam somewhat limited by body habitus. MUSCULOSKELETAL: No obvious deformities. No clubbing. No cyanosis. No edema. NEUROLOGICAL: Awake and alert. No obvious cranial nerve deficits. Motor grossly within normal limits. Normal speech. PSYCHIATRIC: Appropriate mood and affect; insight and judgment normal. Data Data Last Documented VS Vital Signs Date Time Temp Pulse Resp B/P (MAP) Pulse Ox O2 Delivery O2 Flow Rate FiO2 08/24/17 02:05 08/24/17 01:30 70 18 98 08/23/17 23:54 Room Air 08/23/17 23:23 98.2 Orders Orders Complete Blood Count With Diff (08/23/17 23:53) Comprehensive Metabolic Panel (08/23/17 23:53) Lipase (08/23/17 23:53) Urinalysis - C+S If Indicated (08/23/17 23:53) Iv Access Insert/Monitor (08/23/17 23:53) Ecg Monitoring (08/23/17 23:53) Oximetry (08/23/17 23:53) Sodium Chloride 0.9% Flush (Ns Flush) (08/24/17 00:00) Ketorolac Inj (Toradol Inj) (08/24/17 00:00) Ed Urine Pregnancytest Poc (08/23/17 23:53) Ct Abd/Pel W Iv Contrast(Rout) (08/23/17 ) Urine Culture (08/23/17 23:56) Iohexol 350 Inj (Omnipaque 350 Inj) (08/23/17 23:21) Cephalexin (Keflex) (08/24/17 02:00) Ed Discharge Order (08/24/17 01:54) Labs Laboratory Tests Test 08/23/17 23:56 White Blood Count 14.2 TH/MM3 Red Blood Count 4.41 MIL/MM3 Hemoglobin 12.6 GM/DL Hematocrit 37.1 % Mean Corpuscular Volume 84.1 FL Mean Corpuscular Hemoglobin 28.6 PG Mean Corpuscular Hemoglobin Concent 34.1 % Red Cell Distribution Width 13.4 % Platelet Count 350 TH/MM3 Mean Platelet Volume 7.0 FL Neutrophils (%) (Auto) 66.3 % Lymphocytes (%) (Auto) 27.6 % Monocytes (%) (Auto) 4.8 % Eosinophils (%) (Auto) 0.8 % Basophils (%) (Auto) 0.5 % Neutrophils # (Auto) 9.4 TH/MM3 Lymphocytes # (Auto) 3.9 TH/MM3 Monocytes # (Auto) 0.7 TH/MM3 Eosinophils # (Auto) 0.1 TH/MM3 Basophils # (Auto) 0.1 TH/MM3 CBC Comment DIFF FINAL Differential Comment Urine Color YELLOW Urine Turbidity HAZY Urine pH 7.0 Urine Specific [place] 1.034 Urine Protein 30 mg/dL Urine Glucose (UA) NEG mg/dL Urine Ketones NEG mg/dL Urine Occult Blood NEG Urine Nitrite NEG Urine Bilirubin NEG Urine Urobilinogen 2.0 MG/DL Urine Leukocyte Esterase LARGE Urine RBC 5 /hpf Urine WBC 54 /hpf Urine Squamous Epithelial Cells 10 /hpf Urine Bacteria FEW /hpf Urine Mucus FEW /lpf Microscopic Urinalysis Comment CULTURE INDICATED Blood Urea Nitrogen 11 MG/DL Creatinine 0.79 MG/DL Random Glucose 110 MG/DL Total Protein 8.0 GM/DL Albumin 3.8 GM/DL Calcium Level 9.0 MG/DL Alkaline Phosphatase 80 U/L Aspartate Amino Transf (AST/SGOT) 10 U/L Alanine Aminotransferase (ALT/SGPT) 16 U/L Total Bilirubin 0.3 MG/DL Sodium Level 141 MEQ/L Potassium Level 3.6 MEQ/L Chloride Level 105 MEQ/L Carbon Dioxide Level 27.9 MEQ/L Anion Gap 8 MEQ/L Estimat Glomerular Filtration Rate 110 ML/MIN Lipase 124 U/L [facility] Medical Decision Making Medical Screen Exam Complete: Yes Emergency Medical Condition: Yes Differential Diagnosis appendicitis seems unlikely given the no tenderness, UTI, pelvic pain, BV, CV. Narrative Course patient roomed in emergency department, she appears well and in no distress, basic labs are sent and has minimally elevated white blood cell count but does have urinary tract infection. She states her pain was more suprapubic and not truly in the right lower quadrant. Her abdomen is benign. On reassessment she is feeling much more comfortable in no distress. I did offer the patient CAT scan of the my opinion likelihood of her having appendicitis is quite low given her physical exam. Alternative cause of her pain is been identified. She would like to forego CAT scan at this time try antibiotics and return to the ER if her pain is not better. I think this is reasonable. She was also recommended for pelvic exam and should rather do this in outpatient. Discussed return to ED criteria symptomatic management home. Diagnosis Primary Impression: Pelvic pain in female Additional Impression: UTI (urinary tract infection) Med/Other Pt SpecificInfo: Prescription(s) given Scripts Cephalexin (Keflex) 500 Mg Cap 500 MG PO Q6H for Infection for 5 Days, #20 CAP 0 Refills Prov: Reggie Rudd MD 08/24/17 Disposition: 01 DISCHARGE HOME Condition: Stable Reggie Rudd MD Aug 24, 2017 01:54
[2017-08-24] MEDS ORDERED: CEPHALEXIN MONOHYDRATE 500 MG CAP PO ONE (02:00)
== END 2017-08-24 02:06 | disposition home or self-care (01) ==
LOC: NEPE 23:20
DX: N39.0 Urinary tract infection, site not specified (principal); B96.89 Other specified bacterial agents as the cause of diseases classified elsewhere; I10 Essential (primary) hypertension; E11.9 Type 2 diabetes mellitus without complications; Z79.899 Other long term (current) drug therapy
CPT/HCPCS: 74177; 80053; 81001; 83690; 84703; 85025; 87086; 96374; 99285; J1885; Q9967

== ENCOUNTER 2017-09-21 01:11 | Emergency (ER) | payer OTHER ==
[~2017-09-21] VITALS: Ht 180.3 cm; Wt 155.0 kg
[~2017-09-21 01:11] MED LIST changes: +CEPH-460 PO
[2017-09-21 01:13] VITALS: BP 162/75; PULSE 72; RESP 16; TEMP 98.4; O2SAT 98
[2017-09-21] MEDS ORDERED: birth control PO (01:29)
[2017-09-21] MEDS ORDERED: NORG1TAB29 PO (01:41)
[2017-09-21] MEDS ORDERED: KETOROLAC TROMETHAMINE 60 MG/2 ML (IM) VIAL IM ONE (02:45)
--- NOTE | 2017-09-21 02:45 | PD ---
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 Said it was her menstrual period time but she also started a new control pill. Said she stop her control pill today and her bleeding has slowed down and only used 2 pads today. Pt also with mild right sided headache for a right days. Denies any fever, visual changes, chest pain, sob, n/v, abdominal pain, focal weakness or numbness, dysuria. PFSH Past Medical History Cancer: No Cardiovascular Problems: Yes (HTN) Developmental Delay: No Diabetes: Yes Patient Takes Glucophage: Yes (09/20/2017 @ 1100) Diminished Hearing: No Gastrointestinal Disorders: No Genitourinary: No Hypertension: Yes Implanted Vascular Access Dvce: No Reproductive: No Respiratory: No Immunizations Current: Yes Migraines: Yes Tetanus Vaccination: Unknown Influenza Vaccination: No ?: Not LMP: 09/11/2017 : 0 Past Surgical History Surgical History: No Previous Surgery Other Surgery: No Social History Alcohol Use: Yes (OCCASIONALLY) Tobacco Use: No Substance Use: No Allergies-Medications (Allergen,Severity, Reaction): Coded Allergies: acetaminophen (Unverified Allergy, Mild, THROAT ITCHES/DAVIES, 09/21/17) Reported Meds & Prescriptions Reported Meds & Active Scripts Active Reported Low-Ogestrel (Norgestrel-Ethinyl Estradiol) 0.3-30 Mg-Mcg Tab 1 Tab PO DAILY Metformin (Metformin HCl) 500 Mg Tab 500 Mg PO DAILY With a meal Hydrochlorothiazide 12.5 Mg Cap 50 Mg PO DAILY Review of Systems Except as stated in HPI: all other systems reviewed are Neg Physical Exam Narrative GENERAL: 22yo F not in distress. SKIN: Focused skin assessment warm/dry. HEAD: Atraumatic. Normocephalic. EYES: Pupils equal and round. No scleral icterus. No injection or drainage. ENT: No nasal bleeding or discharge. Mucous membranes pink and moist. NECK: No nuchal rigidity. CARDIOVASCULAR: Regular rate and rhythm. No murmur appreciated. RESPIRATORY: No accessory muscle use. Clear to auscultation. Breath sounds equal bilaterally. GASTROINTESTINAL: Abdomen soft, non-tender, nondistended. PELVIC: Refused. MUSCULOSKELETAL: No obvious deformities. No clubbing. No cyanosis. No edema. NEUROLOGICAL: Awake and alert. No obvious cranial nerve deficits. Motor grossly within normal limits. Normal speech. PSYCHIATRIC: Appropriate mood and affect; insight and judgment normal. Data Data Last Documented VS Vital Signs Date Time Temp Pulse Resp B/P (MAP) Pulse Ox O2 Delivery O2 Flow Rate FiO2 09/21/17 01:13 98.4 72 16 162/75 (104) 98 Room Air Orders Orders Ed Urine Pregnancytest Poc (09/21/17 02:40) Ketorolac Inj (Toradol Inj) (09/21/17 02:45) MDM Medical Decision Making Medical Screen Exam Complete: Yes Emergency Medical Condition: Yes Differential Diagnosis Abnormal uterine bleeding vs. breakthrough bleeding from OCP vs. migraine headache vs. tension headache Narrative Course 22yo well appearing female with vaginal bleeding after starting control pill. Urine negative. Vital signs stable. Pt is refusing pelvic exam. She has mild headache and given toradol. No red flags. Pt reevaluated at bedside and headache resolved. Pt wants to go home. Instructed pt to follow up with PMD or BEAR KEEPER. Return precautions given. Diagnosis Primary Impression: Abnormal uterine bleeding Additional Impression: Headache Qualified Codes: R51 - Headache Patient Instructions: General Instructions Departure Forms: Tests/Procedures Additional Instructions: Please follow up with your primary care physician or moth proofer. Return to the ED if symptoms worsen. Med/Other Pt SpecificInfo: No Change to Meds Disposition: 01 DISCHARGE HOME Condition: Stable SantaJacque toureravi MYERS Sep 21, 2017 02:45
== END 2017-09-21 03:54 | disposition home or self-care (01) ==
LOC: NEPC 01:11
DX: N93.9 Abnormal uterine and vaginal bleeding, unspecified (principal); R51 Headache; E11.9 Type 2 diabetes mellitus without complications; I10 Essential (primary) hypertension; Z79.84 Long term (current) use of oral hypoglycemic drugs
CPT/HCPCS: 84703; 96372; 99284; J1885

== ENCOUNTER 2017-10-27 19:35 | Emergency (ER) | payer OTHER ==
[~2017-10-27] VITALS: Ht 180.3 cm; Wt 108.6 kg
[~2017-10-27 19:35] MED LIST changes: -CEPH-460 PO; -EPIP0.3I IM; +NORG1TAB29 PO; -PENI250T PO
[2017-10-27 19:36] VITALS: BP 139/72; PULSE 67; RESP 16; TEMP 98.4; O2SAT 98
--- NOTE | 2017-10-28 00:13 | PD ---
HPI Chief Complaint: Oral / Dental Pain or Problem Time Seen by Provider: 23:52 Travel History International Travel<30 days: No Contact w/Intl Traveler<30days: No Traveled to known affect area: No History of Present Illness HPI The patient was seen and examined in the presence of the nurse. She complains of having a chipped tooth that partially fell out of her mouth. She has a cavity there. She denies fever or injury. Symptom severity is mild. She is not having much pain. PFSH Past Medical History Cancer: No Cardiovascular Problems: Yes (HTN) Developmental Delay: No Diabetes: Yes Patient Takes Glucophage: No Diminished Hearing: No Gastrointestinal Disorders: No Genitourinary: No Hypertension: Yes Implanted Vascular Access Dvce: No Reproductive: No Respiratory: No Immunizations Current: Yes Migraines: Yes Tetanus Vaccination: > 5 Years Influenza Vaccination: No ?: Unknown LMP: 10/21/2017 : 0 Para: 0 Past Surgical History Surgical History: No Previous Surgery Other Surgery: No Social History Alcohol Use: No Tobacco Use: No Substance Use: No Allergies-Medications (Allergen,Severity, Reaction): Coded Allergies: acetaminophen (Unverified Allergy, Mild, THROAT ITCHES/DAVIES, 10/27/17) Reported Meds & Prescriptions Reported Meds & Active Scripts Active Reported Metformin (Metformin HCl) 500 Mg Tab 500 Mg PO DAILY With a meal Hydrochlorothiazide 12.5 Mg Cap 50 Mg PO DAILY Review of Systems General / Constitutional: No: Fever HENT: No: Headaches Cardiovascular: No: Chest Pain or Discomfort Respiratory: No: Cough Physical Exam Narrative SKIN: Focused skin assessment reveals no rash or ulcers. Skin is warm and dry. Palpation shows no induration or nodules. NECK: Symmetrical appearance, midline trachea. No mass or crepitus. Thyroid without enlargement, tenderness, or mass. Oral cavity: Patient has a cracked molar in the right upper jaw. Surrounding gingiva looks pink and healthy. There appears to be cavity there Data Data Last Documented VS Vital Signs Date Time Temp Pulse Resp B/P (MAP) Pulse Ox O2 Delivery O2 Flow Rate FiO2 10/27/17 22:41 20 10/27/17 19:36 98.4 67 139/72 (94) 98 Room Air Orders Orders Penicillin V Potassium (Veetids) (10/28/17 00:15) [facility] Medical Decision Making Medical Screen Exam Complete: Yes Emergency Medical Condition: Yes Medical Record Reviewed: Yes Differential Diagnosis Dental cavity, abscess, gingivitis Narrative Course I have reviewed the patient's electronic medical record. I wrote her a week of penicillin Gave her a dose here She is instructed to call her dentist in the morning for follow-up Diagnosis Primary Impression: Pain, dental Additional Instructions: Follow-up with dentist Med/Other Pt SpecificInfo: Prescription(s) given Disposition: 01 DISCHARGE HOME Condition: Stable Karri Camargo MD Oct 28, 2017 00:12
[2017-10-28] MEDS ORDERED: PENICILLIN V POTASSIUM 500 MG TAB PO ONE (00:15)
[2017-10-28] MEDS ORDERED: PENI500T PO (00:23)
== END 2017-10-28 00:32 | disposition home or self-care (01) ==
LOC: NEPD 19:35
DX: K08.89 Other specified disorders of teeth and supporting structures (principal); I10 Essential (primary) hypertension; E11.9 Type 2 diabetes mellitus without complications; Z88.4 Allergy status to anesthetic agent
CPT/HCPCS: 99283

== ENCOUNTER 2017-11-13 17:59 | Emergency (ER) | payer SELFPAY ==
[~2017-11-13] VITALS: Ht 180.3 cm; Wt 150.0 kg
[~2017-11-13 17:59] MED LIST changes: -NORG1TAB29 PO; +PENI500T PO
[2017-11-13 18:00] VITALS: BP 155/89; PULSE 79; RESP 16; TEMP 98.4; O2SAT 99
[2017-11-13 20:23] LABS: BACTERIA, URINE RARE /hpf; BILIRUBIN, URINE NEG (NEG); BLOOD, URINE LARGE (NEG); GLUCOSE,URINE NEG (NEG); KETONE, URINE NEG (NEG); MUCUS URINE FEW /lpf (OCC); NITRITE,URINE NEG (NEG); PH, URINE 5.5 (5.0-8.5); SQUAMOUS EPITHELIAL CELL URINE 3 /hpf (0-5); URINE COLOR YELLOW (YELLW/STRAW); URINE LEUKOCYTE ESTERASE NEG (NEG)
== END 2017-11-13 19:59 | disposition left against medical advice (07) ==
LOC: NED 17:59
DX: Z53.21 Procedure and treatment not carried out due to patient leaving prior to being seen by health care provider (principal)
CPT/HCPCS: 81001; 84703; 99281

== ENCOUNTER 2017-11-18 02:21 | Emergency (ER) | payer SELFPAY ==
[~2017-11-18] VITALS: Ht 180.3 cm; Wt 150.0 kg
[2017-11-18 02:23] VITALS: BP 135/85; PULSE 82; RESP 18; TEMP 98.7; O2SAT 100
[2017-11-18 02:36] VITALS: BP 115/58; PULSE 77; RESP 18; O2SAT 99
[2017-11-18] MEDS ORDERED: SODIUM CHLOR 0.9% 1000 ML INJ 1,000 ML IV SCH (02:40)
[2017-11-18] MEDS ORDERED: ONDANSETRON HCL 4 MG/2 ML VIAL IVP ONE (02:45)
[2017-11-18] MEDS ORDERED: SODIUM CHLORIDE 0.9% FLUSH 10 ML FLUSH IV FLUSH PRN (02:45)
--- NOTE | 2017-11-18 02:46 | PD ---
HPI Chief Complaint: Abdominal Pain Time Seen by Provider: 02:33 Travel History International Travel<30 days: No Contact w/Intl Traveler<30days: No Traveled to known affect area: No History of Present Illness HPI The patient is a 22-year-old -[place] female who presents to the emergency department for multiple complaints. The patient states her last menstrual cycle was October 12, 2017. However, she has been having breakthrough spotting. She also complains of mild nausea and lower abdominal pelvic cramping. The patient thought she was , took [id number] test which was negative. However, she believes they may be false negatives because she is having symptoms. She denies any diarrhea. She denies any dysuria, frequency, urgency. She denies any discharge. Symptoms are moderate. No current alleviating or exacerbating factors. She is sexually active. PFSH Past Medical History Cancer: No Cardiovascular Problems: Yes (HTN) Developmental Delay: No Diabetes: Yes Patient Takes Glucophage: Yes Diminished Hearing: No Gastrointestinal Disorders: No Genitourinary: No Hypertension: Yes Implanted Vascular Access Dvce: No Reproductive: No Respiratory: No Immunizations Current: Yes Migraines: Yes ?: Unknown LMP: 11/18/17 : 0 Para: 0 Past Surgical History Surgical History: No Previous Surgery Other Surgery: No Social History Alcohol Use: No Tobacco Use: No Substance Use: No Allergies-Medications (Allergen,Severity, Reaction): Coded Allergies: acetaminophen (Unverified Allergy, Mild, THROAT ITCHES/DAVIES, 11/18/17) Reported Meds & Prescriptions Reported Meds & Active Scripts Active Reported Metformin (Metformin HCl) 500 Mg Tab 500 Mg PO DAILY With a meal Hydrochlorothiazide 12.5 Mg Cap 50 Mg PO DAILY Review of Systems Except as stated in HPI: all other systems reviewed are Neg General / Constitutional: No: Fever Cardiovascular: No: Chest Pain or Discomfort Respiratory: No: Shortness of Breath Gastrointestinal: Positive: Nausea, No: Vomiting, Diarrhea, Abdominal Pain Genitourinary: Positive: Pelvic Pain (Cramping), Vaginal Bleeding, No: Dysuria , Discharge Physical Exam Narrative GENERAL: Awake, alert, pleasant 22-year-old female who appears her stated age and is in no acute respiratory distress. SKIN: Focused skin assessment warm/dry. HEAD: Atraumatic. Normocephalic. EYES: No injection or drainage. ENT: No nasal bleeding or discharge. Mucous membranes pink and moist. NECK: Trachea midline. No JVD. CARDIOVASCULAR: Regular rate and rhythm. No murmur appreciated. RESPIRATORY: No accessory muscle use. Clear to auscultation. Breath sounds equal bilaterally. GASTROINTESTINAL: Abdomen soft, obese, minimal epigastric tenderness. No guarding or rigidity. MUSCULOSKELETAL: No obvious deformities. No clubbing. No cyanosis. No edema. NEUROLOGICAL: Awake and alert. No obvious cranial nerve deficits. Motor grossly within normal limits. Normal speech. PSYCHIATRIC: Appropriate mood and affect; insight and judgment normal. Data Data Last Documented VS Vital Signs Date Time Temp Pulse Resp B/P (MAP) Pulse Ox O2 Delivery O2 Flow Rate FiO2 11/18/17 02:36 77 18 115/58 (77) 99 Room Air 11/18/17 02:23 98.7 Orders Orders Beta Hcg (Quant/Titer) (11/18/17 02:40) Complete Blood Count With Diff (11/18/17 02:40) Comprehensive Metabolic Panel (11/18/17 02:40) Lipase (11/18/17 02:40) Urinalysis - C+S If Indicated (11/18/17 02:40) Iv Access Insert/Monitor (11/18/17 02:40) Ecg Monitoring (11/18/17 02:40) Oximetry (11/18/17 02:40) Ondansetron Inj (Zofran Inj) (11/18/17 02:45) Sodium Chlor 0.9% 1000 Ml Inj (Ns 1000 M (11/18/17 02:40) Sodium Chloride 0.9% Flush (Ns Flush) (11/18/17 02:45) Ed Urine Pregnancytest Poc (11/18/17 02:40) Labs Laboratory Tests Test 11/18/17 02:50 11/18/17 03:04 Urine Color YELLOW Urine Turbidity HAZY Urine pH 6.0 Urine Specific [place] 1.037 Urine Protein 30 mg/dL Urine Glucose (UA) NEG mg/dL Urine Ketones NEG mg/dL Urine Occult Blood LARGE Urine Nitrite NEG Urine Bilirubin NEG Urine Urobilinogen 2.0 MG/DL Urine Leukocyte Esterase TRACE Urine RBC 2 /hpf Urine WBC 4 /hpf Urine Squamous Epithelial Cells 12 /hpf Urine Transitional Epithelial Cells <1 /hpf Urine Amorphous Sediment RARE Urine Bacteria OCC /hpf Urine Mucus MOD /lpf Microscopic Urinalysis Comment CULT NOT INDICATED White Blood Count 11.5 TH/MM3 Red Blood Count 4.39 MIL/MM3 Hemoglobin 12.6 GM/DL Hematocrit 36.0 % Mean Corpuscular Volume 82.1 FL Mean Corpuscular Hemoglobin 28.6 PG Mean Corpuscular Hemoglobin Concent 34.9 % Red Cell Distribution Width 13.5 % Platelet Count 361 TH/MM3 Mean Platelet Volume 6.9 FL Neutrophils (%) (Auto) 52.8 % Lymphocytes (%) (Auto) 40.3 % Monocytes (%) (Auto) 4.2 % Eosinophils (%) (Auto) 1.5 % Basophils (%) (Auto) 1.2 % Neutrophils # (Auto) 6.0 TH/MM3 Lymphocytes # (Auto) 4.6 TH/MM3 Monocytes # (Auto) 0.5 TH/MM3 Eosinophils # (Auto) 0.2 TH/MM3 Basophils # (Auto) 0.1 TH/MM3 CBC Comment DIFF FINAL Differential Comment Blood Urea Nitrogen 13 MG/DL Creatinine 0.79 MG/DL Random Glucose 162 MG/DL Total Protein 7.9 GM/DL Albumin 3.8 GM/DL Calcium Level 8.8 MG/DL Alkaline Phosphatase 52 U/L Aspartate Amino Transf (AST/SGOT) 10 U/L Alanine Aminotransferase (ALT/SGPT) 13 U/L Total Bilirubin 0.4 MG/DL Sodium Level 139 MEQ/L Potassium Level 3.6 MEQ/L Chloride Level 103 MEQ/L Carbon Dioxide Level 28.7 MEQ/L Anion Gap 7 MEQ/L Estimat Glomerular Filtration Rate 110 ML/MIN Lipase 141 U/L Human Chorionic Gonadotropin, Quant LESS THAN 1 MIU/ML MDM Medical Decision Making Medical Screen Exam Complete: Yes Emergency Medical Condition: Yes Medical Record Reviewed: Yes Interpretation(s) Laboratory Tests Test 11/18/17 02:50 11/18/17 03:04 Urine Color YELLOW Urine Turbidity HAZY Urine pH 6.0 Urine Specific [place] 1.037 Urine Protein 30 mg/dL Urine Glucose (UA) NEG mg/dL Urine Ketones NEG mg/dL Urine Occult Blood LARGE Urine Nitrite NEG Urine Bilirubin NEG Urine Urobilinogen 2.0 MG/DL Urine Leukocyte Esterase TRACE Urine RBC 2 /hpf Urine WBC 4 /hpf Urine Squamous Epithelial Cells 12 /hpf Urine Transitional Epithelial Cells <1 /hpf Urine Amorphous Sediment RARE Urine Bacteria OCC /hpf Urine Mucus MOD /lpf Microscopic Urinalysis Comment CULT NOT INDICATED White Blood Count 11.5 TH/MM3 Red Blood Count 4.39 MIL/MM3 Hemoglobin 12.6 GM/DL Hematocrit 36.0 % Mean Corpuscular Volume 82.1 FL Mean Corpuscular Hemoglobin 28.6 PG Mean Corpuscular Hemoglobin Concent 34.9 % Red Cell Distribution Width 13.5 % Platelet Count 361 TH/MM3 Mean Platelet Volume 6.9 FL Neutrophils (%) (Auto) 52.8 % Lymphocytes (%) (Auto) 40.3 % Monocytes (%) (Auto) 4.2 % Eosinophils (%) (Auto) 1.5 % Basophils (%) (Auto) 1.2 % Neutrophils # (Auto) 6.0 TH/MM3 Lymphocytes # (Auto) 4.6 TH/MM3 Monocytes # (Auto) 0.5 TH/MM3 Eosinophils # (Auto) 0.2 TH/MM3 Basophils # (Auto) 0.1 TH/MM3 CBC Comment DIFF FINAL Differential Comment Blood Urea Nitrogen 13 MG/DL Creatinine 0.79 MG/DL Random Glucose 162 MG/DL Total Protein 7.9 GM/DL Albumin 3.8 GM/DL Calcium Level 8.8 MG/DL Alkaline Phosphatase 52 U/L Aspartate Amino Transf (AST/SGOT) 10 U/L Alanine Aminotransferase (ALT/SGPT) 13 U/L Total Bilirubin 0.4 MG/DL Sodium Level 139 MEQ/L Potassium Level 3.6 MEQ/L Chloride Level 103 MEQ/L Carbon Dioxide Level 28.7 MEQ/L Anion Gap 7 MEQ/L Estimat Glomerular Filtration Rate 110 ML/MIN Lipase 141 U/L Human Chorionic Gonadotropin, Quant LESS THAN 1 MIU/ML Differential Diagnosis Differential diagnosis includes , dysfunctional uterine bleeding, pancreatitis, gastritis, UTI, vaginitis, cervicitis, PID. Narrative Course Labs are drawn and sent. UA sent to lab. Bedside UA test was obtained. UA test was negative. Beta-hCG was less than 1. Hemoglobin is unremarkable. Beta-hCG is less than 1. Patient was reevaluated at 4 AM, her cramping had resolved, the nausea had resolved. She declined pain medications and nausea medicines to go home with. She is advised to follow-up with her primary physician. Return if symptoms worsen or progress. Diagnosis Primary Impression: Menstrual cramps Patient Instructions: General Instructions Additional Instructions: Please provide the patient copy of her labs at discharge. 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 Return if symptoms worsen or progress. Med/Other Pt SpecificInfo: No Change to Meds Disposition: 01 DISCHARGE HOME Condition: Stable Danny Alcocer MD Nov 18, 2017 02:46
[2017-11-18 03:18] LABS: BASOPHIL # 0.1 TH/MM3 (0-0.2); BASOPHIL % 1.2 % (0.0-2.0); EOSINOPHIL # 0.2 TH/MM3 (0-0.4); EOSINOPHIL % 1.5 % (0.0-4.0); HEMOGLOBIN 12.6 GM/DL (11.6-15.3); LYMPH % 40.3 % (9.0-44.0); LYMPHOCYTE # 4.6 TH/MM3 (1.0-4.8); MEAN CELL VOLUME 82.1 FL (80.0-100.0); MEAN CORPUSCULAR HEMOGLOBIN 28.6 PG (27.0-34.0); MEAN CORPUSCULAR HGB CONC 34.9 % (32.0-36.0); MEAN PLATELET VOLUME 6.9 FL (7.0-11.0); MONO % 4.2 % (0.0-8.0); MONOCYTE # 0.5 TH/MM3 (0-0.9); NEUT % 52.8 % (16.0-70.0); PLATELET COUNT 361 TH/MM3 (150-450); RED BLOOD COUNT 4.39 MIL/MM3 (4.00-5.30); RED CELL DISTRIBUTION WIDTH 13.5 % (11.6-17.2); WHITE BLOOD COUNT 11.5 TH/MM3 (4.0-11.0)
[2017-11-18 03:25] LABS: AMORPHOUS SEDIMENT, URINE RARE; BACTERIA, URINE OCC /hpf; BILIRUBIN, URINE NEG (NEG); BLOOD, URINE LARGE (NEG); GLUCOSE,URINE NEG (NEG); KETONE, URINE NEG (NEG); MUCUS URINE MOD /lpf (OCC); NITRITE,URINE NEG (NEG); SQUAMOUS EPITHELIAL CELL URINE 12 /hpf (0-5); TRANSITIONAL EPI CELLS, URINE <1 /hpf; URINE COLOR YELLOW (YELLW/STRAW); URINE LEUKOCYTE ESTERASE TRACE (NEG)
[2017-11-18 03:37] LABS: ALBUMIN 3.8 GM/DL (3.4-5.0); ALT (GPT) 13 U/L (10-53); AST (GOT) 10 U/L (15-37); BICARBONATE 28.7 MEQ/L (21.0-32.0); BLOOD UREA NITROGEN 13 MG/DL (7-18); CALCIUM 8.8 MG/DL (8.5-10.1); CHLORIDE 103 MEQ/L (98-107); CREATININE 0.79 MG/DL (0.50-1.00); GLOMERULAR FILTRATION RATE 110 ML/MIN (>89); GLUCOSE,RANDOM 162 MG/DL (74-106); SODIUM (NA) 139 MEQ/L (136-145)
[2017-11-18 03:41] LABS: ALKALINE PHOSPHATASE 52 U/L (45-117); TOTAL BILIRUBIN ADULT 0.4 MG/DL (0.2-1.0); TOTAL PROTEIN 7.9 GM/DL (6.4-8.2)
== END 2017-11-18 04:31 | disposition home or self-care (01) ==
LOC: NEPC 02:21
DX: N94.6 Dysmenorrhea, unspecified (principal); E11.9 Type 2 diabetes mellitus without complications; I10 Essential (primary) hypertension; Z79.84 Long term (current) use of oral hypoglycemic drugs
CPT/HCPCS: 80053; 81001; 83690; 84702; 84703; 85025; 96374; 99284; J2405; J7030

== ENCOUNTER 2018-01-03 22:09 | Emergency (ER) | payer OTHER ==
[~2018-01-03 22:09] MED LIST changes: -PENI500T PO
[2018-01-03 22:35] VITALS: BP 152/85; PULSE 90; RESP 16; TEMP 98.4; O2SAT 98
--- NOTE | 2018-01-03 23:06 | PD ---
HPI Chief Complaint: Cold / Flu Symptoms Time Seen by Provider: 22:56 Travel History International Travel<30 days: No Contact w/Intl Traveler<30days: No Traveled to known affect area: No History of Present Illness HPI Patient is a 22-year-old female presenting to the emergency department for evaluation of irritation to her throat. She states she was diagnosed with food poisoning through an urgent care center. She was given Zofran for nausea. She reports that her symptoms have improved however her throat feels irritated when she swallows. She denies any dysphasia, fever, chills, shortness of breath, chest pain. She reports that her symptoms regarding the food poisoning have improved. She states that she burped up some food today. She has no complaints of abdominal pain, her nausea again has improved. She is also requesting a work note at this time. PFSH Past Medical History Cardiovascular Problems: Yes (HTN) Diabetes: Yes Patient Takes Glucophage: Yes (METFORMIN) Diminished Hearing: No Hypertension: Yes Immunizations Current: Yes Migraines: Yes ?: Not LMP: 12/10/17 : 0 Para: 0 Past Surgical History Surgical History: No Previous Surgery Social History Alcohol Use: No Tobacco Use: No Substance Use: No Allergies-Medications (Allergen,Severity, Reaction): Coded Allergies: acetaminophen (Unverified Allergy, Mild, THROAT ITCHES/DAVIES, 11/18/17) Reported Meds & Prescriptions Reported Meds & Active Scripts Active Reported Metformin (Metformin HCl) 500 Mg Tab 500 Mg PO DAILY With a meal Hydrochlorothiazide 12.5 Mg Cap 50 Mg PO DAILY Review of Systems Except as stated in HPI: all other systems reviewed are Neg HENT: Positive: Sore Throat Physical Exam Narrative GENERAL: Obese, well-developed, alert -[place] female. Presenting in no acute distress. SKIN: Warm and dry. HEAD: Atraumatic. Normocephalic. EYES: Pupils equal and round. No scleral icterus. No injection or drainage. ENT: No nasal bleeding or discharge. Mucous membranes pink and moist. Uvula is midline, no erythema or tonsillar hypertrophy noted. Airways patent. NECK: Trachea midline. No JVD. CARDIOVASCULAR: Regular rate and rhythm. RESPIRATORY: No accessory muscle use. Clear to auscultation. Breath sounds equal bilaterally. GASTROINTESTINAL: Abdomen soft, non-tender, nondistended. Hepatic and splenic margins not palpable. Positive bowel sounds, no rebound, no guarding. MUSCULOSKELETAL: Extremities without clubbing, cyanosis, or edema. No obvious deformities. NEUROLOGICAL: Awake and alert. No obvious cranial nerve deficits. Motor grossly within normal limits. Five out of 5 muscle strength in the arms and legs. Normal speech. PSYCHIATRIC: Appropriate mood and affect; insight and judgment normal. Data Data Last Documented VS Vital Signs Date Time Temp Pulse Resp B/P (MAP) Pulse Ox O2 Delivery O2 Flow Rate FiO2 01/03/18 22:35 98.4 90 16 152/85 (107) 98 [facility] Medical Decision Making Medical Screen Exam Complete: Yes Emergency Medical Condition: Yes Interpretation(s) Vital Signs Date Time Temp Pulse Resp B/P (MAP) Pulse Ox O2 Delivery O2 Flow Rate FiO2 01/03/18 22:35 98.4 90 16 152/85 (107) 98 Differential Diagnosis Esophagitis versus pharyngitis versus other Narrative Course Patient is a 22-year-old female presenting to emergency department for evaluation of throat irritation secondary to nausea or vomiting from food poisoning. Patient reports improvement in her symptoms regarding the food poisoning. Her vital signs are stable, she is requesting a note for work. She is encouraged to maintain a bland, easy to digest diet. She was advised to maintain adequate oral fluid intake and avoid acidic foods and drinks. She verbalized understanding of instructions. Patient stable for discharge. Diagnosis Primary Impression: Throat irritation Referrals: Primary Care Physician Patient Instructions: General Instructions Departure Forms: Tests/Procedures, Work Release Enter return to work date: Jan 05, 2018 Additional Instructions: Maintain a bland, easy to digest diet Avoid spicy, fried, fatty foods, acidic foods Follow-up with your primary doctor Return to emergency department for any new worsening symptoms Med/Other Pt SpecificInfo: No Change to Meds Disposition: 01 DISCHARGE HOME Condition: Stable Jose Eduardo,Yusrahernán CABELLO Jan 03, 2018 23:06
== END 2018-01-03 23:26 | disposition home or self-care (01) ==
LOC: NEPD 22:09
DX: J39.2 Other diseases of pharynx (principal); I10 Essential (primary) hypertension; E11.9 Type 2 diabetes mellitus without complications
CPT/HCPCS: 99282